=== PATIENT | female | born 1985 | race Caucasian/White ===

== ENCOUNTER 2017-07-03 17:13 | Inpatient (IN) | payer MEDICAID, OTHER ==
[~2017-07-03] VITALS: Ht 160 cm; Wt 75.8 kg
[2017-07-03 17:15] VITALS: BP 118/77; PULSE 122; RESP 20; TEMP 99.5; O2SAT 99
[2017-07-03] MEDS ORDERED: LEVO.2 PO (20:28)
[2017-07-03] MEDS ORDERED: birth control (20:28)
[2017-07-03] MEDS ORDERED: SODIUM CHLOR 0.9% 1000 ML INJ 1,000 ML IV SCH (20:50)
--- NOTE | 2017-07-03 20:57 | PD ---
HPI Chief Complaint: Abdominal Pain Time Seen by Provider: 20:42 Travel History International Travel<30 days: No Contact w/Intl Traveler<30days: No Traveled to known affect area: No History of Present Illness HPI 32-year-old female complains of right upper quadrant abdominal pain. Patient states that the pain started yesterday get worse today. Patient states the pain is cramping and sharp pain started right upper quadrant of the abdomen with radiation to right flank area. Patient denies any fever chills. Patient denies any dysuria or frequency. Patient states that the urine has been dark since yesterday. Patient denies any headache. Patient denies any chest pain or shortness of breath. Patient denies any vaginal discharge or bleeding. Patient has history hypothyroidism and on Synthroid. PFSH Past Medical History Thyroid Disease: Yes ?: Not Dilation and Curettage (D&C): Yes Past Surgical History Tonsillectomy: Yes Other Surgery: Yes (five on right foot) Social History Alcohol Use: Yes (socially) Tobacco Use: Yes Allergies-Medications (Allergen,Severity, Reaction): Coded Allergies: acetaminophen (Verified Allergy, Severe, Itching, 07/03/17) hydrocodone (Verified Allergy, Severe, Itching, 07/03/17) latex (Verified Allergy, Severe, 07/03/17) Uncoded Allergies: cillins (Allergy, Severe, Anaphylaxis, 07/03/17) Reported Meds & Prescriptions Reported Meds & Active Scripts Active Reported Synthroid (Levothyroxine Sodium) 200 Mcg Tab 250 Mcg PO DAILY [ control] Review of Systems General / Constitutional: No: Fever Eyes: No: Visual changes HENT: No: Headaches Cardiovascular: No: Chest Pain or Discomfort Respiratory: No: Shortness of Breath Gastrointestinal: Positive: Abdominal Pain Genitourinary: No: Dysuria Musculoskeletal: No: Pain Skin: No Rash Neurologic: No: Weakness Psychiatric: No: Depression Endocrine: No: Polydipsia Hematologic/Lymphatic: No: Easy Bruising Physical Exam Narrative GENERAL: Well-nourished, well-developed patient. SKIN: Focused skin assessment warm/dry. HEAD: Normocephalic. EYES: Bilateral scleral icterus. No injection or drainage. NECK: Supple, trachea midline. No JVD or lymphadenopathy. CARDIOVASCULAR: Regular rate and rhythm without murmurs, gallops, or rubs. RESPIRATORY: Breath sounds equal bilaterally. No accessory muscle use. GASTROINTESTINAL: Abdomen soft, nondistended. Patient has moderate tenderness on palpation right upper quadrant of the abdomen. No rebound tenderness. No mass. MUSCULOSKELETAL: No cyanosis, or edema. BACK: Nontender without obvious deformity. No CVA tenderness. Neurologic exam normal. Data Data Last Documented VS Vital Signs Date Time Temp Pulse Resp B/P (MAP) Pulse Ox O2 Delivery O2 Flow Rate FiO2 07/03/17 21:52 82 18 116/63 (80) 98 Room Air 07/03/17 17:15 99.5 Orders Orders Us Abdomen Gallbladder (07/03/17 ) Complete Blood Count With Diff (07/03/17 20:50) Comprehensive Metabolic Panel (07/03/17 20:50) Lipase (07/03/17 20:50) Prothrombin Time / Inr (Pt) (07/03/17 20:50) Act Partial Throm Time (Ptt) (07/03/17 20:50) Urinalysis - C+S If Indicated (07/03/17 20:50) Iv Access Insert/Monitor (07/03/17 20:50) Ecg Monitoring (07/03/17 20:50) Oximetry (07/03/17 20:50) Morphine Inj (Morphine Inj) (07/03/17 21:00) Ondansetron Inj (Zofran Inj) (07/03/17 21:00) Sodium Chlor 0.9% 1000 Ml Inj (Ns 1000 M (07/03/17 20:50) Sodium Chloride 0.9% Flush (Ns Flush) (07/03/17 21:00) Famotidine Inj (Pepcid Inj) (07/03/17 21:00) Ed Urine Pregnancytest Poc (07/03/17 20:50) Urine Culture (07/03/17 21:20) Mri Mrcp W & W/O Contrast (07/04/17 07:00) Hepatitis Profile (07/03/17 22:38) Labs Laboratory Tests Test 07/03/17 21:20 White Blood Count 11.5 TH/MM3 Red Blood Count 5.72 MIL/MM3 Hemoglobin 17.5 GM/DL Hematocrit 51.1 % Mean Corpuscular Volume 89.4 FL Mean Corpuscular Hemoglobin 30.7 PG Mean Corpuscular Hemoglobin Concent 34.3 % Red Cell Distribution Width 15.5 % Platelet Count 201 TH/MM3 Mean Platelet Volume 10.2 FL Neutrophils (%) (Auto) 41.8 % Lymphocytes (%) (Auto) 44.5 % Monocytes (%) (Auto) 8.9 % Eosinophils (%) (Auto) 3.4 % Basophils (%) (Auto) 1.4 % Neutrophils # (Auto) 4.8 TH/MM3 Lymphocytes # (Auto) 5.1 TH/MM3 Monocytes # (Auto) 1.0 TH/MM3 Eosinophils # (Auto) 0.4 TH/MM3 Basophils # (Auto) 0.2 TH/MM3 CBC Comment DIFF FINAL Differential Comment Prothrombin Time 12.3 SEC Prothromb Time International Ratio 1.1 RATIO Activated Partial Thromboplast Time 27.8 SEC Urine Color DARK-BROWN Urine Turbidity CLOUDY Urine pH 5.5 Urine Specific [place] 1.025 Urine Protein TRACE mg/dL Urine Glucose (UA) NEG mg/dL Urine Ketones NEG mg/dL Urine Occult Blood NEG Urine Nitrite NEG Urine Bilirubin LARGE Urine Urobilinogen 4.0 MG/DL Urine Leukocyte Esterase LARGE Urine RBC 4 /hpf Urine WBC 44 /hpf Urine Squamous Epithelial Cells 8 /hpf Urine Amorphous Sediment RARE Urine Mucus MOD /lpf Microscopic Urinalysis Comment CULTURE INDICATED Blood Urea Nitrogen 5 MG/DL Creatinine 0.96 MG/DL Random Glucose 72 MG/DL Total Protein 8.1 GM/DL Albumin 4.3 GM/DL Calcium Level 9.5 MG/DL Alkaline Phosphatase 231 U/L Aspartate Amino Transf (AST/SGOT) 1021 U/L Alanine Aminotransferase (ALT/SGPT) 1705 U/L Total Bilirubin 16.3 MG/DL Sodium Level 139 MEQ/L Potassium Level 3.6 MEQ/L Chloride Level 106 MEQ/L Carbon Dioxide Level 23.5 MEQ/L Anion Gap 10 MEQ/L Estimat Glomerular Filtration Rate 67 ML/MIN Lipase 440 U/L [facility] Medical Decision Making Medical Screen Exam Complete: Yes Emergency Medical Condition: Yes Interpretation(s) Last Impressions Gall Bladder Ultrasound 07/03/17 0000 Signed Impressions: Service Date/Time: Monday, July 03, 2017 20:44 - CONCLUSION: 4 mm borderline thickening of the wall the gallbladder with no evidence of stones or pericholecystic fluid and the bile ducts are normal. Ruben Carreon MD 21:50 PM. CBC WBC 11.5. Hemoglobin 17.5 and hematocrit 51.1. 44 lymphocytes. UA positive for bilirubin, leukocytes, WBC. 22 24 PM. Random glucose 72. Total bili 16.3. AST 1021. ALT 1705. Alkaline phosphatase 231. Lipase 440. Differential Diagnosis Differential diagnosis including acute cholecystitis, choledocholithiasis, hepatitis, pyelonephritis, nephrolithiasis. Narrative Course 32 year female with right upper quadrant abdominal pain, jaundice. Normal saline solution 1 25 cc an hour. Morphine 2 mg IV. Zofran 4 mg IV. Pepcid 20 mg IV. I spoke with title checker, Dr. Ragsdale. Advised medical admission and hepatitis profile MRCP. Diagnosis Primary Impression: Acute hepatitis Admitting Information Admitting Physician Requests: Admit Martínez Villagran MD Jul 03, 2017 20:57
[2017-07-03] MEDS ORDERED: MORPHINE SULFATE 4 MG/ML INJ IV PUSH ONE ×2 (21:00→22:45)
[2017-07-03] MEDS ORDERED: SODIUM CHLORIDE 0.9% FLUSH 10 ML FLUSH IV FLUSH PRN ×2 (21:00→22:45)
[2017-07-03] MEDS ORDERED: ONDANSETRON HCL 4 MG/2 ML VIAL IVP ONE (21:00)
[2017-07-03] MEDS ORDERED: FAMOTIDINE 20 MG/2 ML VIAL IV PUSH ONE (21:00)
--- NOTE | 2017-07-03 21:23 | RADRPT ---
EXAM DATE/TIME: 07/03/2017 20:44 [facility] COMPARISON: No previous studies available for comparison. INDICATIONS : Right upper quadrant pain. MEDICAL HISTORY : Right upper quadrant pain. Jaundice. SURGICAL HISTORY : None. ENCOUNTER: Initial ACUITY: 1 day PAIN SCORE: 8/10 LOCATION: Right upper quadrant MEASUREMENTS: LIVER: 13.4 cm length COMMON DUCT: 3 mm RIGHT KIDNEY: 11.2 x 4.4 x 4.1 cm FINDINGS: LIVER: Normal echotexture without focal lesion or ductal dilatation. COMMON DUCT: No intraluminal mass or stone visualized. GALLBLADDER: Contains no stones or para cholecystic fluid with borderline thickening of 4 mm and the wall PANCREAS: The visualized portions are within normal limits. RIGHT KIDNEY: No evidence of hydronephrosis, stone, or mass. CONCLUSION: 4 mm borderline thickening of the wall the gallbladder with no evidence of stones or pericholecystic fluid and the bile ducts are normal. Ruben Carreon MD on July 03, 2017 at 21:21 Board Certified Radiologist. This report was verified electronically.
[2017-07-03 21:36] LABS: AUTOMATED NEUTROPHIL # 4.8 TH/MM3 (1.8-7.7); BASOPHIL # 0.2 TH/MM3 (0-0.2); BASOPHIL % 1.4 % (0.0-2.0); EOSINOPHIL # 0.4 TH/MM3 (0-0.4); EOSINOPHIL % 3.4 % (0.0-4.0); HEMATOCRIT 51.1 % (35.0-46.0); HEMO FLAGS DIFF FINAL; LYMPH % 44.5 % (9.0-44.0); LYMPHOCYTE # 5.1 TH/MM3 (1.0-4.8); MEAN CELL VOLUME 89.4 FL (80.0-100.0); MEAN CORPUSCULAR HEMOGLOBIN 30.7 PG (27.0-34.0); MEAN CORPUSCULAR HGB CONC 34.3 % (32.0-36.0); MONO % 8.9 % (0.0-8.0); NEUT % 41.8 % (16.0-70.0); PLATELET COUNT 201 TH/MM3 (150-450); RED BLOOD COUNT 5.72 MIL/MM3 (4.00-5.30); RED CELL DISTRIBUTION WIDTH 15.5 % (11.6-17.2); WHITE BLOOD COUNT 11.5 TH/MM3 (4.0-11.0)
[2017-07-03 21:38] LABS: BLOOD, URINE NEG (NEG); COMMENT (UR) CULTURE INDICATED; CULTURE IF INDICATED CULTURE INDICATED; GLUCOSE,URINE NEG (NEG); KETONE, URINE NEG (NEG); MUCUS URINE MOD /lpf (OCC); NITRITE,URINE NEG (NEG); PH, URINE 5.5 (5.0-8.5); SQUAMOUS EPITHELIAL CELL URINE 8 /hpf (0-5)
[2017-07-03 21:39] LABS: URINE COLOR DARK-BROWN (YELLW/STRAW)
[2017-07-03 21:51] LABS: ANION GAP 10 MEQ/L (5-15); BICARBONATE 23.5 MEQ/L (21.0-32.0); BLOOD UREA NITROGEN 5 MG/DL (7-18); CHLORIDE 106 MEQ/L (98-107); GLOMERULAR FILTRATION RATE 67 ML/MIN (>89); POTASSIUM 3.6 MEQ/L (3.5-5.1); SODIUM (NA) 139 MEQ/L (136-145)
[2017-07-03 21:52] VITALS: BP 116/63; PULSE 82; RESP 18; O2SAT 98
[2017-07-03 22:06] LABS: APTT (PATIENT) 27.8 SEC (24.3-30.1); INTERNATIONAL NORMALIZED RATIO 1.1 RATIO; PROTHROMBIN TIME - PATIENT 12.3 SEC (9.8-11.6)
[2017-07-03 22:07] LABS: ALKALINE PHOSPHATASE 231 U/L (45-117); TOTAL BILIRUBIN ADULT 16.3 MG/DL (0.2-1.0)
[2017-07-03 22:10] LABS: ALT (GPT) 1705 U/L (10-53); AST (GOT) 1021 U/L (15-37)
[2017-07-03] MEDS ORDERED: NALOXONE HCL 0.4 MG/ML AMP IV PUSH PRN (22:45)
[2017-07-04] VITALS (10 sets, daily range): BP systolic 94–122; BP diastolic 50–71; PULSE 61–84; RESP 16–18; TEMP 97.9–98.6; O2SAT 94–100
[2017-07-04] MEDS: MORPHINE SULFATE 2 MG/ML INJ IV PUSH PRN ×2 (01:29→06:00)
[2017-07-04] MEDS ORDERED: PROMETHAZINE INJ 25 MG/ML VIAL IM ONE (01:45)
[2017-07-04 08:21] LABS: AUTOMATED NEUTROPHIL # 2.9 TH/MM3 (1.8-7.7); BASOPHIL # 0.1 TH/MM3 (0-0.2); BASOPHIL % 1.6 % (0.0-2.0); EOSINOPHIL # 0.5 TH/MM3 (0-0.4); HEMATOCRIT 41.1 % (35.0-46.0); HEMO FLAGS DIFF FINAL; LYMPH % 44.2 % (9.0-44.0); LYMPHOCYTE # 3.3 TH/MM3 (1.0-4.8); MEAN CELL VOLUME 89.7 FL (80.0-100.0); MEAN CORPUSCULAR HEMOGLOBIN 30.7 PG (27.0-34.0); MEAN CORPUSCULAR HGB CONC 34.3 % (32.0-36.0); MONO % 8.7 % (0.0-8.0); NEUT % 38.5 % (16.0-70.0); PLATELET COUNT 147 TH/MM3 (150-450); RED BLOOD COUNT 4.58 MIL/MM3 (4.00-5.30); RED CELL DISTRIBUTION WIDTH 15.4 % (11.6-17.2); WHITE BLOOD COUNT 7.5 TH/MM3 (4.0-11.0)
[2017-07-04 08:50] LABS: ALKALINE PHOSPHATASE 139 U/L (45-117); ANION GAP 10 MEQ/L (5-15); AST (GOT) 884 U/L (15-37); BICARBONATE 20.5 MEQ/L (21.0-32.0); BLOOD UREA NITROGEN 6 MG/DL (7-18); CHLORIDE 111 MEQ/L (98-107); GLOMERULAR FILTRATION RATE 91 ML/MIN (>89); POTASSIUM 3.6 MEQ/L (3.5-5.1); SODIUM (NA) 141 MEQ/L (136-145); TOTAL BILIRUBIN ADULT 12.5 MG/DL (0.2-1.0)
[2017-07-04 09:05] LABS: ALT (GPT) 1193 U/L (10-53)
[2017-07-04] MEDS: SODIUM CHLORIDE 0.9% FLUSH 10 ML FLUSH IV FLUSH SCH ×2 (09:22→20:11)
--- NOTE | 2017-07-04 09:54 | HHI.HP ---
[facility] No Primary Care Physician Admission Diagnosis acute hepatitis Diagnoses: (1) Acute hepatitis Diagnosis: Principal Chief Complaint: Dizzness, nausea and vomiting Travel History International Travel<30 Days: No Contact w/Intl Traveler <30 Da: No Traveled to Known Affected Are: No History of Present Illness Written by Ainsley Bhatti, acting as scribe for Dr. Jose on 07/04/17 at 09: 51. Mrs. Hilario is a 32-year-old female patient with a known medical history of hypothyroidism and tobacco abuse who presented to the ED with complaints of abdominal pain with associated nausea and vomiting. Patient states that 3 days ago she noticed intermittent dizziness and yellowing of her sclera with the next day complaints of nausea and vomiting with abdominal pain all night long. Denies any similar symptoms in the past. Denies eating anything unusual in her diet. Denies any recent consumption of seafood, states she is allergic. Denies any recent exposure to contaminated needles. Denies any new sexual partners, patient is . 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 Denies any exposure to hepatitis "if that is what you're asking". Denies any recent fever, chills, cough, shortness of breath, headache, diarrhea or hematochezia. Review of Systems Constitutional: DENIES: Fever, Chills, Change in appetite Respiratory: DENIES: Cough, Shortness of breath Cardiovascular: DENIES: Chest pain Gastrointestinal: COMPLAINS OF: Abdominal pain, Nausea, Vomiting Except as stated in HPI: all other systems reviewed are Neg Dizziness Jaundice Past Family Social History Past Medical History Hypothyroidism Past Surgical History D&C x 2 Tonsillectomy Foot surgeries x 5 Reconstructed sinus surgery Reported Medications Active Reported Synthroid (Levothyroxine Sodium) 200 Mcg Tab 250 Mcg PO DAILY [ control] Allergies: Coded Allergies: acetaminophen (Verified Allergy, Severe, Itching, 07/03/17) hydrocodone (Verified Allergy, Severe, Itching, 07/03/17) latex (Verified Allergy, Severe, 07/03/17) Uncoded Allergies: cillins (Allergy, Severe, Anaphylaxis, 07/03/17) Active Ordered Medications Current Medications Medications (Trade) Dose Ordered Sig/Charline Route Start Time Stop Time Status Last Admin (NS Flush) 2 ml UNSCH PRN IV FLUSH 07/03/17 22:45 (NS Flush) 2 ml BID IV FLUSH 07/04/17 09:00 07/04/17 09:22 (Narcan Inj) 0.4 mg UNSCH PRN IV PUSH 07/03/17 22:45 (Morphine Inj) 2 mg Q4H PRN IV PUSH 07/04/17 01:15 07/04/17 06:00 (Ativan) 1 mg ONCE ONCE PO 07/04/17 10:00 07/04/17 10:01 Family History Patient is adopted, unaware of parental medical history. Does state that her biological brother had his gallbladder out early this year as well as her biological aunt having gallbladder problems. Social History Does admit to smoking 6 cigarettes per day. Denies any alcohol use. Denies any illicit drug use. Physical Exam Vital Signs Vital Signs Date Time Temp Pulse Resp B/P (MAP) Pulse Ox O2 Delivery O2 Flow Rate FiO2 07/04/17 08:00 98.4 61 18 98/54 (69) 94 07/04/17 05:32 98.5 80 16 122/71 (88) 96 07/04/17 01:31 98.5 84 18 120/68 (85) 96 07/04/17 00:59 73 07/04/17 00:22 Room Air 07/03/17 21:52 82 18 116/63 (80) 98 Room Air 07/03/17 17:15 99.5 122 20 118/77 (91) 99 Room Air Physical Exam GENERAL: This is a well-nourished, well-developed female patient, lying in bed, with complaint of abdominal pain. SKIN: No rashes, ecchymoses or lesions. Warm and dry. HEENT: Atraumatic. Normocephalic. Pupils equal round and reactive. Extraocular motions intact. No scleral icterus. No injection or drainage. Nose without bleeding. Throat without erythema, tonsillar hypertrophy or exudate. Uvula midline. Airway patent. NECK: Trachea midline. No JVD. Supple. CARDIOVASCULAR: Regular rate and rhythm without murmurs, gallops, or rubs. RESPIRATORY: Clear to auscultation. Breath sounds equal bilaterally. No wheezes , rales, or rhonchi. GASTROINTESTINAL: Abdomen soft, non-tender, nondistended. No hepato-splenomegaly , or palpable masses. No guarding. MUSCULOSKELETAL: Extremities without clubbing, cyanosis, or edema. No joint tenderness, effusion, or edema noted. NEUROLOGICAL: Awake and alert. Cranial nerves II through XII intact. Motor and sensory grossly within normal limits. Five out of 5 muscle strength in all muscle groups. Normal speech. Laboratory Laboratory Tests Test 07/03/17 21:20 07/04/17 07:20 White Blood Count 11.5 7.5 Red Blood Count 5.72 4.58 Hemoglobin 17.5 14.1 Hematocrit 51.1 41.1 Mean Corpuscular Volume 89.4 89.7 Mean Corpuscular Hemoglobin 30.7 30.7 Mean Corpuscular Hemoglobin Concent 34.3 34.3 Red Cell Distribution Width 15.5 15.4 Platelet Count 201 147 Mean Platelet Volume 10.2 10.2 Neutrophils (%) (Auto) 41.8 38.5 Lymphocytes (%) (Auto) 44.5 44.2 Monocytes (%) (Auto) 8.9 8.7 Eosinophils (%) (Auto) 3.4 7.0 Basophils (%) (Auto) 1.4 1.6 Neutrophils # (Auto) 4.8 2.9 Lymphocytes # (Auto) 5.1 3.3 Monocytes # (Auto) 1.0 0.7 Eosinophils # (Auto) 0.4 0.5 Basophils # (Auto) 0.2 0.1 CBC Comment DIFF FINAL DIFF FINAL Differential Comment Prothrombin Time 12.3 Prothromb Time International Ratio 1.1 Activated Partial Thromboplast Time 27.8 Urine Color DARK-BROWN Urine Turbidity CLOUDY Urine pH 5.5 Urine Specific [place] 1.025 Urine Protein TRACE Urine Glucose (UA) NEG Urine Ketones NEG Urine Occult Blood NEG Urine Nitrite NEG Urine Bilirubin LARGE Urine Urobilinogen 4.0 Urine Leukocyte Esterase LARGE Urine RBC 4 Urine WBC 44 Urine Squamous Epithelial Cells 8 Urine Amorphous Sediment RARE Urine Mucus MOD Microscopic Urinalysis Comment CULTURE INDICATED Blood Urea Nitrogen 5 6 Creatinine 0.96 0.73 Random Glucose 72 57 Total Protein 8.1 5.1 Albumin 4.3 2.8 Calcium Level 9.5 8.0 Alkaline Phosphatase 231 139 Aspartate Amino Transf (AST/SGOT) 1021 884 Alanine Aminotransferase (ALT/SGPT) 1705 1193 Total Bilirubin 16.3 12.5 Sodium Level 139 141 Potassium Level 3.6 3.6 Chloride Level 106 111 Carbon Dioxide Level 23.5 20.5 Anion Gap 10 10 Estimat Glomerular Filtration Rate 67 91 Lipase 440 Acetaminophen Level LESS THAN 2.0 Date/Time Source Procedure Growth Status 07/03/17 21:20 Urine Random Urine Urine Culture Pending Received Result Diagram: 07/04/17 0720 07/04/17 07 Imaging Last Impressions Gall Bladder Ultrasound 07/03/17 0000 Signed Impressions: Service Date/Time: Monday, July 03, 2017 20:44 - CONCLUSION: 4 mm borderline thickening of the wall the gallbladder with no evidence of stones or pericholecystic fluid and the bile ducts are normal. MD Smooth Hurley VTE Risk Assessment Smooth VTE Risk Assessment: No/Low Risk (score <= 1) Caprini Risk Assessment Model Point Value = 1 Point Value = 2 Point Value = 3 Point Value = 5 Age 41-60 Minor surgery BMI > 25 kg/m2 Swollen legs Varicose veins or History of unexplained or recurrent spontaneous Oral contraceptives or hormone replacement Sepsis (< 1 month) Serious lung disease, including pneumonia (< 1 month) Abnormal pulmonary function Acute myocardial infarction Congestive heart failure (< 1 month) History of inflammatory bowel disease Medical patient at bed rest Age 61-74 Arthroscopic surgery Major open surgery (> 45 min) Laparoscopic surgery (> 45 min) Malignancy Confined to bed (> 72 hours) Immobilizing plaster cast Central venous access Age >= 75 History of VTE Family history of VTE Factor V Leiden Prothrombin 10605B Lupus anticoagulant Anticardiolipin antibodies Elevated serum homocysteine Heparin-induced thrombocytopenia Other congenital or acquired thrombophilia Stroke (< 1 month) Elective arthroplasty Hip, pelvis, or leg fracture Acute spinal cord injury (< 1 month) Prophylaxis Regimen Total Risk Factor Score Risk Level Prophylaxis Regimen 0-1 Low Early ambulation 2 Moderate Order ONE of the following: *Sequential Compression Device (SCD) *Heparin 5000 units SQ BID 3-4 Higher Order ONE of the following medications: *Heparin 5000 units SQ TID *Enoxaparin/Lovenox 40 mg SQ daily (WT < 150 kg, CrCl > 30 mL/min) *Enoxaparin/Lovenox 30 mg SQ daily (WT < 150 kg, CrCl > 10-29 mL/min) *Enoxaparin/Lovenox 30 mg SQ BID (WT < 150 kg, CrCl > 30 mL/min) AND/OR *Sequential Compression Device (SCD) 5 or more Highest Order ONE of the following medications: *Heparin 5000 units SQ TID (Preferred with Epidurals) *Enoxaparin/Lovenox 40 mg SQ daily (WT < 150 kg, CrCl > 30 mL/min) *Enoxaparin/Lovenox 30 mg SQ daily (WT < 150 kg, CrCl > 10-29 mL/min) *Enoxaparin/Lovenox 30 mg SQ BID (WT < 150 kg, CrCl > 30 mL/min) AND *Sequential Compression Device (SCD) Assessment and Plan Assessment and Plan Mrs. Hilario is a 32-year-old female patient with a known medical history of hypothyroidism and tobacco abuse who presented to the ED with complaints of abdominal pain with associated nausea and vomiting. Patient states that 3 days ago she noticed intermittent dizziness and yellowing of her sclera with the next day complaints of nausea and vomiting with abdominal pain all night long. Acute hepatitis suspect secondary to viral vs obstructive process Transaminase secondary to above. - Gall bladder ultrasound reviewed showing 4 mm borderline thickening of the wall of the gallbladder with no evidence of stones or pericholecystic fluid and the bile ducts are normal. - MRCP ordered for today, follow. Given one dose of Ativan for anxiety related to procedure. - Initial mild leukocytosis 11.5 on presentation, now 7.5. Monitor for infection. Monitor for fever. Afebrile overnight. - Total bilirubin 16.3 on presentation --> 12.5. AST 1021 --> 884 and ALT 1705 --> 1193 and alkaline phosphatase 231-->139. Lipase mildly elevated. Will repeat labs in am. Follow. - Hepatitis profile pending. Follow. - UA showing large amount of bilirubin and urobilinogen, and leukocyte esterase. Awaiting urine culture growth, pending. Follow. - Control pain, Morphine IV available PRN as needed. Control nausea, Zofran available PRN. - Keep NPO for now. Supportive care. - Consult placed to GI, appreciate further input and recommendations. - Patient reports no improvement with Morphine but does not objectively appear to be in severe pain. Switch to Oxycodone which she reports usually work for her. Plan to wean off quickly based on the workup DVT Prophylaxis: SCDs. This note was transcribed by scribe [Ainsley Bhatti]. I, Dr. Mary Kate Jose personally performed the history, physical exam, and medical decision making; and confirmed the accuracy of the information in the transcribed note. Authenticated by Dr. Mary Kate Jose on 07/04/17 at 1000. Physician Certification 2 Midnight Certification Type: Admission for Inpatient Services Order for Inpatient Services The services are ordered in accordance with Medicare regulations or non- Medicare payer requirements, as applicable. In the case of services not specified as inpatient-only, they are appropriately provided as inpatient services in accordance with the 2-midnight benchmark. Estimated LOS (days): 2 2 days is the estimated time the patient will need to remain in the hospital, assuming treatment plan goals are met and no additional complications. Post-Hospital Plan: Home Ainsley Bhatti Jul 04, 2017 09:54 Mary Kate Jose MD Jul 04, 2017 11:33
[2017-07-04] MEDS ORDERED: LORazepam 1 MG TAB PO ONE (10:00)
--- NOTE | 2017-07-04 10:48 | RADRPT ---
EXAM DATE/TIME: 07/04/2017 10:09 [facility] COMPARISON: US ABDOMEN - GALLBLADDER, July 03, 2017, 20:44. INDICATIONS : Abdominal pain. Juandice. MEDICAL HISTORY : Gastroesophageal reflux disease. Thyroid disease. SURGICAL HISTORY : Tonsillectomy. Right foot surgery. ENCOUNTER: Subsequent ACUITY: 2 day PAIN SCORE: 4/10 LOCATION: Right upper quadrant abdomen. TECHNIQUE: Multiplanar, multisequence magnetic resonance imaging of the abdomen was performed. High-resolution 3D dataset was utilized to reconstruct maximum-intensity projection (MIP) images. FINDINGS: INTRAHEPATIC BILE DUCTS: Within normal limits. No significant anatomical variant is present. EXTRAHEPATIC BILE DUCTS: The common bile duct measures 4 mm No stone or filling defect is identified. GALLBLADDER: No stones, wall thickening, or pericholecystic fluid. LIVER: Normal size and signal intensity. No concerning liver lesion is identified on this non-contrast exam. PANCREAS: The main pancreatic duct is normal in size. There is no significant anatomical variant. Signal inte nsity is within normal limits. No mass is visualized on this non-contrast exam. OTHER: The remaining visualized structures demonstrate no acute abnormality on this non-contrast exam. CONCLUSION: Unremarkable MRCP. Jarad Beltran MD on July 04, 2017 at 10:44 Board Certified Radiologist. This report was verified electronically.
--- NOTE | 2017-07-04 13:25 | PD.CONS ---
HPI History of Present Illness This is a 32 year old female who presented with RUQ pain, n/v, jaundice. 4 days ago she noticed her eyes turnign yellow, felt dizzy. 3 d ago onset nausea and vomiting, subjective fevers. Yesterday onset RUQ pain that radiated to right shoulder. Denies recent travel, new meds, IVDU, new sex partners, exposure to unsterile needles. She does have recent tattoo but says sterile disposable needle unwrapped in front of her. No diarrhea, blood in emesis, blood in stool. Never had EGD or colonoscopy. No prior hx liver trouble. She says she has family hx of cholecystitis with jaundice. (Smita Gonzalez) PFSH Past Medical History Hypothyroidism hypothyroid, thyroid nodules Past Surgical History D&C x 2 Tonsillectomy Foot surgeries x 5 Reconstructed sinus surgery (Smita Gonzalez) Coded Allergies: acetaminophen (Verified Allergy, Severe, Itching, 07/03/17) hydrocodone (Verified Allergy, Severe, Itching, 07/03/17) latex (Verified Allergy, Severe, 07/03/17) Uncoded Allergies: cillins (Allergy, Severe, Anaphylaxis, 07/03/17) Family History Patient is adopted, unaware of parental medical history. Does state that her biological brother had his gallbladder out early this year as well as her biological aunt having gallbladder problems. Social History Does admit to smoking 6 cigarettes per day. Denies any alcohol use. Denies any illicit drug use. (Smita Gonzalez) Review of Systems Constitutional: COMPLAINS OF: Fever, Dizziness Eyes: DENIES: Blurred vision Ears, nose, mouth, throat: DENIES: Hearing loss Respiratory: DENIES: Cough Cardiovascular: DENIES: Chest pain Gastrointestinal: COMPLAINS OF: Abdominal pain, Nausea, Vomiting, DENIES: Black stools, Bloody stools, Constipation, Diarrhea, Hematemesis Genitourinary: DENIES: Hematuria Musculoskeletal: DENIES: Joint Swelling Integumentary: COMPLAINS OF: Jaundice Neurologic: DENIES: Abnormal gait Psychiatric: DENIES: Confusion (Smita Gonzalez) GI Exam Vitals I&O Vital Signs Date Time Temp Pulse Resp B/P (MAP) Pulse Ox O2 Delivery O2 Flow Rate FiO2 07/04/17 12:00 98.1 68 18 94/53 (67) 100 07/04/17 09:29 61 07/04/17 09:29 Room Air 07/04/17 08:00 98.4 61 18 98/54 (69) 94 07/04/17 05:32 98.5 80 16 122/71 (88) 96 07/04/17 01:31 98.5 84 18 120/68 (85) 96 07/04/17 00:59 73 07/04/17 00:22 Room Air 07/03/17 21:52 82 18 116/63 (80) 98 Room Air 07/03/17 17:15 99.5 122 20 118/77 (91) 99 Room Air I/O 07/03/17 07/03/17 07/03/17 07/04/17 07/04/17 07/04/17 07:00 15:00 23:00 07:00 15:00 23:00 Intake Total 1000 ml Balance 1000 ml Intake IV Total 1000 ml Imaging Last Impressions Cholangiopancreatography MRI 07/04/17 0700 Signed Impressions: Service Date/Time: Tuesday, July 04, 2017 10:09 - CONCLUSION: Unremarkable MRCP. Jarad Beltran MD Gall Bladder Ultrasound 07/03/17 0000 Signed Impressions: Service Date/Time: Monday, July 03, 2017 20:44 - CONCLUSION: 4 mm borderline thickening of the wall the gallbladder with no evidence of stones or pericholecystic fluid and the bile ducts are normal. Ruben Carreon MD Laboratory Test 07/03/17 21:20 07/04/17 07:20 White Blood Count 11.5 TH/MM3 7.5 TH/MM3 Red Blood Count 5.72 MIL/MM3 4.58 MIL/MM3 Hemoglobin 17.5 GM/DL 14.1 GM/DL Hematocrit 51.1 % 41.1 % Mean Corpuscular Volume 89.4 FL 89.7 FL Mean Corpuscular Hemoglobin 30.7 PG 30.7 PG Mean Corpuscular Hemoglobin Concent 34.3 % 34.3 % Red Cell Distribution Width 15.5 % 15.4 % Platelet Count 201 TH/MM3 147 TH/MM3 Mean Platelet Volume 10.2 FL 10.2 FL Neutrophils (%) (Auto) 41.8 % 38.5 % Lymphocytes (%) (Auto) 44.5 % 44.2 % Monocytes (%) (Auto) 8.9 % 8.7 % Eosinophils (%) (Auto) 3.4 % 7.0 % Basophils (%) (Auto) 1.4 % 1.6 % Neutrophils # (Auto) 4.8 TH/MM3 2.9 TH/MM3 Lymphocytes # (Auto) 5.1 TH/MM3 3.3 TH/MM3 Monocytes # (Auto) 1.0 TH/MM3 0.7 TH/MM3 Eosinophils # (Auto) 0.4 TH/MM3 0.5 TH/MM3 Basophils # (Auto) 0.2 TH/MM3 0.1 TH/MM3 CBC Comment DIFF FINAL DIFF FINAL Differential Comment Prothrombin Time 12.3 SEC Prothromb Time International Ratio 1.1 RATIO Activated Partial Thromboplast Time 27.8 SEC Urine Color DARK-BROWN Urine Turbidity CLOUDY Urine pH 5.5 Urine Specific [place] 1.025 Urine Protein TRACE mg/dL Urine Glucose (UA) NEG mg/dL Urine Ketones NEG mg/dL Urine Occult Blood NEG Urine Nitrite NEG Urine Bilirubin LARGE Urine Urobilinogen 4.0 MG/DL Urine Leukocyte Esterase LARGE Urine RBC 4 /hpf Urine WBC 44 /hpf Urine Squamous Epithelial Cells 8 /hpf Urine Amorphous Sediment RARE Urine Mucus MOD /lpf Microscopic Urinalysis Comment CULTURE INDICATED Blood Urea Nitrogen 5 MG/DL 6 MG/DL Creatinine 0.96 MG/DL 0.73 MG/DL Random Glucose 72 MG/DL 57 MG/DL Total Protein 8.1 GM/DL 5.1 GM/DL Albumin 4.3 GM/DL 2.8 GM/DL Calcium Level 9.5 MG/DL 8.0 MG/DL Alkaline Phosphatase 231 U/L 139 U/L Aspartate Amino Transf (AST/SGOT) 1021 U/L 884 U/L Alanine Aminotransferase (ALT/SGPT) 1705 U/L 1193 U/L Total Bilirubin 16.3 MG/DL 12.5 MG/DL Sodium Level 139 MEQ/L 141 MEQ/L Potassium Level 3.6 MEQ/L 3.6 MEQ/L Chloride Level 106 MEQ/L 111 MEQ/L Carbon Dioxide Level 23.5 MEQ/L 20.5 MEQ/L Anion Gap 10 MEQ/L 10 MEQ/L Estimat Glomerular Filtration Rate 67 ML/MIN 91 ML/MIN Lipase 440 U/L Acetaminophen Level LESS THAN 2.0 MCG/ML Date/Time Source Procedure Growth Status 07/03/17 21:20 Urine Random Urine Urine Culture Pending Received Physical Examination HEENT: PERRL; normocephalic; atraumatic; +icterus CHEST: CTA CARDIAC: RRR ABDOMEN: Soft, nondistended, RUQ TTP; no hepatosplenomegaly; bowel sounds are present in all four quadrants. EXTREMITIES: No clubbing, cyanosis, or edema. SKIN: Normal; no rash; +jaundice. MEDICAL DEVICE SALES: No focal deficits; alert and oriented times three. (Smita Gonzalez) Assessment and Plan Plan ASSESSMENT - elevated LFTs, jaundice, RUQ pain - US shows GB wall thickening, MRCP neg. could have passed stone. poss cholecystitis. will consult GS PLAN - liver w/u to r/o other cause elevated LFTs - await hep panel - GS consult - NPO until GS sees pt - monitor labs - further recs to follow This pt seen by myself and Dr Ragsdale and this note is written on his behalf (Smita Gonzalez) Physician Comments Date of service was yesterday Patient seen and examined Agree with above Continue with current supportive care Monitor labs (Jay Ragsdale MD) Smita Gonzalez Jul 04, 2017 13:25 Jay Ragsdale MD Jul 05, 2017 17:50
[2017-07-04] MEDS: D5-1/2 NS + KCL 10 MEQ INJ 1,000 ML IV SCH (16:24)
[2017-07-04] MEDS: ONDANSETRON HCL 4 MG/2 ML VIAL IV PUSH PRN (18:47)
[2017-07-04] MEDS ORDERED: MORPHINE SULFATE 2 MG/ML INJ IV PUSH ONE (23:15)
[2017-07-05] VITALS (7 sets, daily range): BP systolic 96–118; BP diastolic 56–74; PULSE 53–91; RESP 16–20; TEMP 97.4–98.9; O2SAT 95–100
[2017-07-05] MEDS: ONDANSETRON HCL 4 MG/2 ML VIAL IV PUSH PRN ×3 (01:41→12:50)
[2017-07-05] MEDS: D5-1/2 NS + KCL 10 MEQ INJ 1,000 ML IV SCH ×3 (05:43→21:38)
[2017-07-05 08:13] LABS: ANION GAP 5 MEQ/L (5-15); BICARBONATE 25.7 MEQ/L (21.0-32.0); BLOOD UREA NITROGEN 5 MG/DL (7-18); CHLORIDE 109 MEQ/L (98-107); GLOMERULAR FILTRATION RATE 60 ML/MIN (>89); POTASSIUM 3.8 MEQ/L (3.5-5.1); SODIUM (NA) 140 MEQ/L (136-145)
[2017-07-05 08:24] LABS: AST (GOT) 1204 U/L (15-37)
[2017-07-05] MEDS: SODIUM CHLORIDE 0.9% FLUSH 10 ML FLUSH IV FLUSH SCH ×2 (08:26→20:28)
[2017-07-05 08:31] LABS: ALKALINE PHOSPHATASE 180 U/L (45-117); ALT (GPT) 1511 U/L (10-53); FERRITIN 3865 NG/ML (8-252); TOTAL BILIRUBIN ADULT 18.6 MG/DL (0.2-1.0); TRANSFERRIN IRON PROFILE 246 MG/DL (200-360)
--- NOTE | 2017-07-05 10:05 | HHI.GIFU ---
Subjective Remarks Resting in bed. Reports that her right upper quadrant pain is worsening. She has associated nausea. She denies any fevers or chills. She denies any generalized malaise or diarrhea. She does report that she was being seen as an outpatient for thyroid nodules and reports that there was some concern that they could be malignant. She reports that she has lost 150 pounds since September by cutting out junk food and soda. She denies any etoh use, drug use, Tylenol use, herbal supplements. She states the only medicine she takes is control and she has been on this since age 12. She denies any sick contacts, recent travel. (Marine Chan) Objective Vitals I&O Vital Signs Date Time Temp Pulse Resp B/P (MAP) Pulse Ox O2 Delivery O2 Flow Rate FiO2 07/05/17 04:45 98.0 53 16 96/56 (69) 98 07/04/17 23:35 97.9 64 16 102/56 (71) 100 07/04/17 20:00 Room Air 07/04/17 19:54 65 07/04/17 19:39 98.6 64 16 106/59 (75) 98 07/04/17 16:00 98.6 64 18 101/50 (67) 99 07/04/17 12:00 98.1 68 18 94/53 (67) 100 I/O 07/04/17 07/04/17 07/04/17 07/05/17 07/05/17 07/05/17 07:00 15:00 23:00 07:00 15:00 23:00 Intake Total 1000 ml 360 ml 1345 ml Balance 1000 ml 360 ml 1345 ml Intake Oral 360 ml 360 ml IV Total 1000 ml 985 ml # Voids 3 4 # Bowel Movements 0 0 Laboratory Laboratory Tests Test 07/05/17 06:55 Blood Urea Nitrogen 5 Creatinine 1.05 Random Glucose 75 Total Protein 5.8 Albumin 3.0 Calcium Level 8.1 Alkaline Phosphatase 180 Aspartate Amino Transf (AST/SGOT) 1204 Alanine Aminotransferase (ALT/SGPT) 1511 Total Bilirubin 18.6 Sodium Level 140 Potassium Level 3.8 Chloride Level 109 Carbon Dioxide Level 25.7 Anion Gap 5 Estimat Glomerular Filtration Rate 60 Iron Level 310 Total Iron Binding Capacity 344 Percent Iron Saturation 90.0 Ferritin 3865 Lipase 306 Tumor Marker Alpha Fetoprotein 21.1 Date/Time Source Procedure Growth Status 07/03/17 21:20 Urine Random Urine Urine Culture - Final 10-50,000 CFU/ML MIXED NKECHI... Complete Imaging Last Impressions Cholangiopancreatography MRI 07/04/17 0700 Signed Impressions: Service Date/Time: Tuesday, July 04, 2017 10:09 - CONCLUSION: Unremarkable MRCP. Jarad Beltran MD Gall Bladder Ultrasound 07/03/17 0000 Signed Impressions: Service Date/Time: Monday, July 03, 2017 20:44 - CONCLUSION: 4 mm borderline thickening of the wall the gallbladder with no evidence of stones or pericholecystic fluid and the bile ducts are normal. Ruben Carreon MD Physical Exam HEENT: Normocephalic; atraumatic; jaundice. CHEST: CTA CARDIAC: RRR. ABDOMEN: Soft, nondistended, nontender; no hepatosplenomegaly; bowel sounds are present in all four quadrants. EXTREMITIES: No clubbing, cyanosis, or edema. SKIN: Normal; no rash; + jaundice. DIXONAC OPERATOR: No focal deficits; alert and oriented times three. (Marine Chan [facility]) Assessment and Plan Plan ASSESSMENT - Acute hepatitis, unclear etiology. Pt c/o RUQ pain and n/v. Denies any new medications, etoh use, herbal supplements, Tylenol use. States the only med she takes is control and that she has been on this since age 12. She does report that she was being seen as an outpatient for thyroid nodules and reports that there was some concern that they could be malignant. She reports that she has lost 150 pounds since September by cutting out junk food and soda. She denies any sick contacts, recent travel. [place] GB (07/03/17)---> 4 mm borderline thickening of the wall of the gallbladder with no evidence of stones or pericholecystic fluid in the bile ducts are normal. MRCP without contrast (07/04/17)---> Unremarkable MRCP. Patient with worsening LFTs today. Hepatitis profile negative. AFP 21.1, iron saturation 90.0, ferritin 3865, alpha 1 antitrypsin pending, ceruloplasmin pending, BRITTANY pending, AMA pending , ASMA pending Total bilirubin 18.6, AST 1204, ALT 1511, alkaline phosphatase 180. Will check serology for CMV, EBV, HSV. Recheck coag. Plan for ERCP with possible stent placement today. GS evaluation pending. At this point, the etiology for her hepatitis is unclear. - Elevated AFP, undetermined significance. AFP 21.1. - Elevated ferritin, iron saturation. iron saturation 90.0, ferritin 3865. Check hfe gene - RUQ pain. Some wall thickening on US with no pericholecystic fluid. Unclear if this is related to hepatitis or there is gb path going on as well. GS eval pending. The patient insists that her pain is related to her gb- RUQ pain radiating to her shoulder. Her lipase was mildly elevated, but has improved today. - Elevated lipase, improved. Now normalized. - Abn. Wt. Loss. States she lost 150 lbs (320--->170 lb) since September from cutting out junk food and soda. - Hypothyroidism. States she was found to have thyroid nodules and told that they could be malignant as outpatient, but has not been able to get in for biopsy/further workup. PLAN: - Plan for ercp with possible sphincterotomy, possible stent placement - Obtain consents - NPO - Stat PT/INR - Hfe Gene - EBV, IgG, IgM - HSV IgG, IgM - CMV DNA - Await BRITTANY, ASMA, AMA, Ceruloplasmin, Alpha 1 Antitrypsin - GS evaluation - Monitor CBC, CMP, PT/INR - ? May need liver biopsy if no improvement - Pt seen and examined by Dr. Ragsdale and myself and this note is written on his behalf (Marine Chan) Physician Comments Patient seen and examined Agree with above Continue with current supportive care Monitor labs Plan for an ERCP so as to rule out an obstructive process (Jay Ragsdale MD) Marine Chan Jul 05, 2017 10:05 Jay Ragsdale MD Jul 05, 2017 13:18
--- NOTE | 2017-07-05 10:19 | HHI.PR ---
Subjective Remarks Written by Ainsley Bhatti, acting as scribe for Dr. Jose on 07/05/17 at 10: 19. Follow up transaminase and abdominal pain. Patient seen and examined in room. Denies any new acute complaints overnight, does complain of continued abdominal pain unrelieved with current pain regimen. Patient denies any continued nausea or vomiting. Denies any recent fever, chills, chest pain, cough, shortness of breath, diarrhea or dysuria. Objective Vitals Vital Signs Date Time Temp Pulse Resp B/P (MAP) Pulse Ox O2 Delivery O2 Flow Rate FiO2 07/05/17 08:00 98.4 70 20 107/67 (80) 100 07/05/17 04:45 98.0 53 16 96/56 (69) 98 07/04/17 23:35 97.9 64 16 102/56 (71) 100 07/04/17 20:00 Room Air 07/04/17 19:54 65 07/04/17 19:39 98.6 64 16 106/59 (75) 98 07/04/17 16:00 98.6 64 18 101/50 (67) 99 07/04/17 12:00 98.1 68 18 94/53 (67) 100 I/O 07/04/17 07/04/17 07/04/17 07/05/17 07/05/17 07/05/17 07:00 15:00 23:00 07:00 15:00 23:00 Intake Total 1000 ml 360 ml 1345 ml Balance 1000 ml 360 ml 1345 ml Intake Oral 360 ml 360 ml IV Total 1000 ml 985 ml # Voids 3 4 # Bowel Movements 0 0 Result Diagram: 07/04/17 0720 07/05/17 0655 Imaging Last Impressions Cholangiopancreatography MRI 07/04/17 0700 Signed Impressions: Service Date/Time: Tuesday, July 04, 2017 10:09 - CONCLUSION: Unremarkable MRCP. Jarad Beltran MD Gall Bladder Ultrasound 07/03/17 0000 Signed Impressions: Service Date/Time: Monday, July 03, 2017 20:44 - CONCLUSION: 4 mm borderline thickening of the wall the gallbladder with no evidence of stones or pericholecystic fluid and the bile ducts are normal. Ruben Carreon MD Objective Remarks GENERAL: This is a well-nourished, well-developed female patient, lying in bed, with complaint of abdominal pain. SKIN: No rashes, ecchymoses or lesions. Warm and dry. HEENT: Atraumatic. Normocephalic. Pupils equal round and reactive. Extraocular motions intact. No scleral icterus. No injection or drainage. Nose without bleeding. Throat without erythema, tonsillar hypertrophy or exudate. Uvula midline. Airway patent. NECK: Trachea midline. No JVD. Supple. CARDIOVASCULAR: Regular rate and rhythm without murmurs, gallops, or rubs. RESPIRATORY: Clear to auscultation. Breath sounds equal bilaterally. No wheezes , rales, or rhonchi. GASTROINTESTINAL: Abdomen soft, non-tender, nondistended. No hepato-splenomegaly , or palpable masses. No guarding. MUSCULOSKELETAL: Extremities without clubbing, cyanosis, or edema. No joint tenderness, effusion, or edema noted. NEUROLOGICAL: Awake and alert. Cranial nerves II through XII intact. Motor and sensory grossly within normal limits. Five out of 5 muscle strength in all muscle groups. Normal speech. A/P Problem List: (1) Acute hepatitis ICD Code: B17.9 - Acute viral hepatitis, unspecified Status: Acute Assessment and Plan Mrs. Hilario is a 32-year-old female patient with a known medical history of hypothyroidism and tobacco abuse who presented to the ED with complaints of abdominal pain with associated nausea and vomiting. Patient states that 3 days ago she noticed intermittent dizziness and yellowing of her sclera with the next day complaints of nausea and vomiting with abdominal pain all night long. Acute hepatitis suspect secondary to viral vs obstructive process Choledocholithiasis Transaminase secondary to above. - Gall bladder ultrasound reviewed showing 4 mm borderline thickening of the wall of the gallbladder with no evidence of stones or pericholecystic fluid and the bile ducts are normal. MRCP essentially unremarkable. ERCP done today showing choledocholithiasis and acute hepatitis. - Leukocytosis 11.5 on presentation, now 7.5. Monitor for infection. Monitor for fever. Afebrile overnight. - Worsening transaminase. Total bilirubin 16.3 on presentation --> 12.5 --> 18.6. AST 1021 --> 884 --> 1204 and ALT 1705 --> 1193 --> 1511 and alkaline phosphatase 231-- >139 --> 180. Lipase mildly elevated. - Hepatitis profile negative. - Urine culture showing probable contaminants. - Control pain, Morphine IV available PRN as needed. Control nausea, Zofran available PRN. - Clear liquid, assess toleration. - GI following, appreciate input. Consulted general surgery, appreciate input. - Patient reports continued abdominal pain. Will continue Oxycodone and add Morphine IV PRN for breakthrough pain. Plan to wean off quickly based on the workup DVT Prophylaxis: SCDs. This note was transcribed by scribe [Ainsley Bhatti]. I, Dr. Mary Kate Jose personally performed the history, physical exam, and medical decision making; and confirmed the accuracy of the information in the transcribed note. Authenticated by Dr. Mary Kate Jose on 07/05/17 at 1020. Ainsley Bhatti Jul 05, 2017 10:19 Mary Kate Jose MD Jul 05, 2017 15:34
--- NOTE | 2017-07-05 11:13 | PD.CAR.PN ---
CVT Progress Note Subjective/Hospital Course: Referral received Patient with pattern of massive liver failure not related to gallbladder but an intrinsic liver process Full consult to follow Jovanny J Objective: Vital Signs Date Time Temp Pulse Resp B/P (MAP) Pulse Ox O2 Delivery O2 Flow Rate FiO2 07/05/17 08:00 98.4 70 20 107/67 (80) 100 07/05/17 04:45 98.0 53 16 96/56 (69) 98 07/04/17 23:35 97.9 64 16 102/56 (71) 100 07/04/17 20:00 Room Air 07/04/17 19:54 65 07/04/17 19:39 98.6 64 16 106/59 (75) 98 07/04/17 16:00 98.6 64 18 101/50 (67) 99 07/04/17 12:00 98.1 68 18 94/53 (67) 100 Labs: Laboratory Tests Test 07/05/17 06:55 Blood Urea Nitrogen 5 MG/DL (7-18) Creatinine 1.05 MG/DL (0.50-1.00) Random Glucose 75 MG/DL (74-106) Total Protein 5.8 GM/DL (6.4-8.2) Albumin 3.0 GM/DL (3.4-5.0) Calcium Level 8.1 MG/DL (8.5-10.1) Alkaline Phosphatase 180 U/L (45-117) Aspartate Amino Transf (AST/SGOT) 1204 U/L (15-37) Alanine Aminotransferase (ALT/SGPT) 1511 U/L (10-53) Total Bilirubin 18.6 MG/DL (0.2-1.0) Sodium Level 140 MEQ/L (136-145) Potassium Level 3.8 MEQ/L (3.5-5.1) Chloride Level 109 MEQ/L (98-107) Carbon Dioxide Level 25.7 MEQ/L (21.0-32.0) Anion Gap 5 MEQ/L (5-15) Estimat Glomerular Filtration Rate 60 ML/MIN (>89) Iron Level 310 MCG/DL (50-170) Total Iron Binding Capacity 344 MCG/DL (250-450) Percent Iron Saturation 90.0 % (20-50) Ferritin 3865 NG/ML (8-252) Lipase 306 U/L (73-393) Tumor Marker Alpha Fetoprotein 21.1 NG/ML (0.5-8.0) Anti-Nuclear Antibody Screen NEG (NEG) Result Diagram: 07/04/17 0720 07/05/17 0655 Eliseo Mccoy MD Jul 05, 2017 11:13
[2017-07-05] MEDS ORDERED: FAMOTIDINE 20 MG/2 ML VIAL ONE (11:19)
[2017-07-05] MEDS ORDERED: APREPITANT 40 MG CAP ONE (11:19)
[2017-07-05] MEDS ORDERED: LACTATED RINGER'S 1000 ML INJ 1,000 ML ONE (11:29)
[2017-07-05] MEDS ORDERED: SUCCINYLCHOLINE CHLORIDE 100 MG/5 ML SYRINGE IV PUSH ONE (12:00)
[2017-07-05] MEDS ORDERED: MIDAZOLAM HCL 2 MG/2 ML VIAL IV ONE (12:00)
[2017-07-05] MEDS ORDERED: LIDOCAINE HCL 1% PF 5 ML AMPULE OTHER ONE (12:00)
[2017-07-05] MEDS ORDERED: ONDANSETRON HCL 4 MG/2 ML VIAL IV PUSH ONE (12:00)
[2017-07-05] MEDS ORDERED: ROCURONIUM INJ 50 MG/5 ML SYRINGE IV PUSH ONE (12:00)
[2017-07-05] MEDS ORDERED: DEXAMETHASONE SOD PHOS 4 MG/ML VIAL IV ONE (12:00)
[2017-07-05] MEDS ORDERED: PROPOFOL 200 MG/20 ML AMP IV ONE (12:00)
[2017-07-05] MEDS ORDERED: IOHEXOL 350 MG/ML 50 ML BTL (for RAD DIAG) OTHER ONE (12:11)
[2017-07-05] MEDS ORDERED: GLUCAGON 1 MG/ML VIAL IV PUSH ONE (12:13)
[2017-07-05] MEDS ORDERED: POVIDONE IODINE 5% (ANTISEPSIS KIT) 4 APPLICATIONS EACH NARE PRN (12:15)
[2017-07-05] MEDS ORDERED: METOPROLOL TARTRATE 25 MG TAB PO PRN (12:15)
[2017-07-05] MEDS ORDERED: CHLORHEXIDINE GLUCONATE 2 % 1 PACK (2 CLOTHS) TOPICAL PRN (12:15)
[2017-07-05] MEDS ORDERED: LACTATED RINGER'S 1000 ML IV PRN (12:15)
[2017-07-05] MEDS ORDERED: INSULIN HUMAN REGULAR 1,000 UNITS/10 ML VIAL SQ PRN (12:15)
[2017-07-05] MEDS ORDERED: SODIUM CHLORID 0.9% 500 ML IV PRN (12:15)
[2017-07-05] MEDS ORDERED: DO NOT ADM ANY ANTICOAGULANT DRUGS PRN (12:39)
[2017-07-05] MEDS ORDERED: *PROMETHAZINE 25 MG/ML VIAL PERIprocedural use ONLY ONE (13:10)
--- NOTE | 2017-07-05 13:16 | PD.PROCEDR ---
GI Procedure REFERRING PHYSICIAN Ericka PROCEDURE PERFORMED ERCP with sphincterotomy and balloon extraction INDICATION FOR PROCEDURE Worsening jaundice, worsening LFTs, right upper quadrant abdominal pain PROCEDURE: The procedure, risks and benefits were discussed with Ms. Hilario and informed consent was obtained. Anesthesia sedated her with Diprivan patient was intubated. She was placed in the left lateral decubitus position. ERCP: Patient was placed in a prone position. The Pentax videoscope was introduced through the oropharynx and advanced to the second portion of the duodenum where the ampula was identified. FINDINGS: The ampulla appeared to be unremarkable there were able to cannulate the common bile duct this appeared to be of normal caliber but they were suspect filling defects in the distal and the gallbladder filled nicely the intrahepatics were unremarkable a sphincterotomy was performed and balloon extraction using an 8 mm balloon was performed and small debris was noted to come out but no distinct stone was seen and the procedure was then terminated ESTIMATED BLOOD LOSS: None SPECIMENS REMOVED: None COMPLICATIONS: None IMPRESSION: Choledocholithiasis Acute hepatitis PLAN: Continue with current supportive care Monitor labs Further workup ordered for acute hepatitis Jay Ragsdale MD Jul 05, 2017 13:16
[2017-07-05 14:40] LABS: INTERNATIONAL NORMALIZED RATIO 1.2 RATIO; PROTHROMBIN TIME - PATIENT 13.6 SEC (9.8-11.6)
--- NOTE | 2017-07-05 15:05 | RADRPT ---
EXAM DATE/TIME: 07/05/2017 12:26 [facility] COMPARISON: No previous studies available for comparison. INDICATIONS : Obstruction FLUORO TIME: .25 minutes IMAGE COUNT: 2 CONTRAST: Instilled by Ordering Physician MEDICAL HISTORY : Jaundice SURGICAL HISTORY : None. ENCOUNTER: Initial ACUITY: 1 day PAIN SCORE: Non-responsive. LOCATION: Abdomen FINDINGS: An ERCP was performed by the ordering physician. The images demonstrate contrast opacifying the extrahepatic and to a lesser degree intrahepatic bilia ry system. Contrast is seen opacifying the cystic duct and gallbladder. No filling defects observed. A wire is seen traversing the common bile duct and terminating in the left hepatic ducts. CONCLUSION: ERCP as above. Frank Weaver Jr., MD on July 05, 2017 at 15:02 Board Certified Radiologist. This report was verified electronically.
[2017-07-05 16:08] LABS: INDIRECT BILIRUBIN 5.9 MG/DL (0.0-0.8); TOTAL BILIRUBIN ADULT 18.2 MG/DL (0.2-1.0)
--- NOTE | 2017-07-05 19:35 | MB ---
cc: MD CLIFF,ELISEO DATE OF CONSULTATION 07/05/17 REASON FOR CONSULTATION Acute hepatic failure, jaundice, abdominal pain, hepatitis. HISTORY OF PRESENT DISEASE This 32-year-old female presented to the emergency room after she noticed that her eyes turned yellow. She also had right upper quadrant pain, nausea and vomiting. The patient has fairly an unremarkable medical history. Denies having new sex partners, unsterile needles, shooting drugs or anything like that. No other issues. No blood in stool or hematemesis. The patient has allergy to Tylenol and hydrocodone so she is not taking that. PAST SURGICAL HISTORY Surgical history for tonsillectomy and several foot surgeries. PAST MEDICAL HISTORY Medical history of hypothyroidism. FAMILY HISTORY Unremarkable. SOCIAL HISTORY The patient is a very light smoker. Does not drink. Does not use drugs. PHYSICAL EXAMINATION GENERAL: Reveals a pleasant 32-year-old female. She is just status post ERCP, still a little drowsy. HEENT: Normocephalic. No trauma to the head. Pupils equally reactive. Extraocular muscles intact. Sclerae are heavily anicteric and skin is almost orange to the point of severe icterus, so are the mucous membranes. NECK: Bilateral carotid pulses. No bruits. CHEST: Bilateral breath sounds. HEART: Regular rhythm. ABDOMEN: Soft. No rebound or guarding. No masses. Slightly tender right upper quadrant and actually liver is not enlarged. PELVIS: Pelvis is stable. EXTREMITIES: Extremities are grossly within normal limits. Scars from previous surgery on the foot. BACK: Normal. IMPRESSION/RECOMMENDATIONS I reviewed laboratory, diagnostic procedures. This lady has indeed severe jaundice and also very significant elevation of liver function tests including AST, SGOT, SGPT and alkaline phosphatase. As far as bilirubin breakdown is concerned, this is mainly direct hyperbilirubinemia. Based on the above findings and MRCP results this patient does not have biliary obstruction caused by mechanical cause and based on her entire picture this lady has acute hepatitis cause of which at this point is being sought after. It is probably not related to Tylenol use or anything like that because she does not take it but clearly usual pathogens should be looked at. At this point there is nothing surgical to be done here. I thank you much for referral. Eliseo Mccoy SJ/EO /5:24 PM /7:22 PM
[2017-07-06] VITALS (7 sets, daily range): BP systolic 95–109; BP diastolic 57–67; PULSE 54–84; RESP 16–20; TEMP 97.8–99.1; O2SAT 95–98
[2017-07-06] MEDS: ONDANSETRON HCL 4 MG/2 ML VIAL IV PUSH PRN ×3 (01:10→17:49)
[2017-07-06 01:13] LABS: EBV VCA IgM Negative (Negative)
[2017-07-06] MEDS: MORPHINE SULFATE 2 MG/ML INJ IM PRN ×4 (04:34→21:29)
[2017-07-06] MEDS: D5-1/2 NS + KCL 10 MEQ INJ 1,000 ML IV SCH ×2 (07:53→17:52)
--- NOTE | 2017-07-06 08:00 | HHI.GIFU ---
Subjective Remarks Resting in bed. States she continues to have ruq pain and would like her gallbladder removed during this hospitalization. Nausea, no vomiting- states she will not eat the clear liquid diet because she does not like jello and broth. No fever. States that she has tested positive for HSV before because her mother had it, but has never had an active infection. (Marine Chan) Objective Vitals I&O Vital Signs Date Time Temp Pulse Resp B/P (MAP) Pulse Ox O2 Delivery O2 Flow Rate FiO2 07/06/17 04:33 98.0 69 16 106/61 (76) 98 07/06/17 04:00 Room Air 07/06/17 00:00 Room Air 07/05/17 23:25 98.9 64 16 99/63 (75) 98 07/05/17 20:00 98.7 61 16 110/64 (79) 97 07/05/17 20:00 Room Air 07/05/17 20:00 70 07/05/17 16:00 98.5 91 18 118/61 (80) 95 07/05/17 13:40 97.4 85 20 108/69 (82) 95 07/05/17 13:15 76 14 106/57 (73) 100 Room Air 07/05/17 13:00 89 14 97/55 (69) 99 Room Air 07/05/17 12:44 98.8 93 14 111/64 (80) 99 Nasal Cannula 2 07/05/17 11:10 98.6 81 16 108/74 (85) 98 07/05/17 08:00 98.4 70 20 107/67 (80) 100 07/05/17 08:00 Room Air I/O 07/05/17 07/05/17 07/05/17 07/06/17 07/06/17 07/06/17 07:00 15:00 23:00 07:00 15:00 23:00 Intake Total 1345 ml 600 ml 0 ml 240 ml Balance 1345 ml 600 ml 0 ml 240 ml Intake Oral 360 ml 0 ml 240 ml IV Total 985 ml Other 600 ml # Voids 4 5 # Bowel Movements 0 0 Laboratory Laboratory Tests Test 07/05/17 13:37 Prothrombin Time 13.6 Prothromb Time International Ratio 1.2 Jessica-Ragland Virus Capsid Ag IgG Ab Positive Jessica-Ragland Virus Capsid Ag IgM Ab Negative Jessica-Ragland Nuclear Antigen Positive Jessica-Ragland Virus Interpretation . Herpes Simplex Virus I IgG Ab Index Negative Herpes Simplex Virus II IgG Index Positive Date/Time Source Procedure Growth Status 07/03/17 21:20 Urine Random Urine Urine Culture - Final 10-50,000 CFU/ML MIXED NKECHI... Complete Imaging Last Impressions GI Procedure 07/05/17 0000 Signed Impressions: Service Date/Time: Wednesday, July 05, 2017 12:26 - CONCLUSION: ERCP as above. Frank Weaver Jr., MD Cholangiopancreatography MRI 07/04/17 0700 Signed Impressions: Service Date/Time: Tuesday, July 04, 2017 10:09 - CONCLUSION: Unremarkable MRCP. Jarad Beltran MD Gall Bladder Ultrasound 07/03/17 0000 Signed Impressions: Service Date/Time: Monday, July 03, 2017 20:44 - CONCLUSION: 4 mm borderline thickening of the wall the gallbladder with no evidence of stones or pericholecystic fluid and the bile ducts are normal. Ruben Carreon MD Physical Exam HEENT: Normocephalic; atraumatic; jaundice. CHEST: CTA CARDIAC: RRR. ABDOMEN: Soft, nondistended, RUQ tenderness; no hepatosplenomegaly; bowel sounds are present in all four quadrants. EXTREMITIES: No clubbing, cyanosis, or edema. SKIN: Normal; no rash; + jaundice. DYEING MACHINE TENDER: No focal deficits; alert and oriented times three. (Marine Chan [facility]) Assessment and Plan Plan ASSESSMENT: - Acute hepatitis, unclear etiology. Pt c/o RUQ pain and n/v. Denies any new medications, etoh use, herbal supplements, Tylenol use. States the only med she takes is control and that she has been on this since age 12. She does report that she was being seen as an outpatient for thyroid nodules and reports that there was some concern that they could be malignant. She reports that she has lost 150 pounds since September by cutting out junk food and soda. She denies any sick contacts, recent travel. [place] (07/03/17)---> 4 mm borderline thickening of the wall of the gallbladder with no evidence of stones or pericholecystic fluid in the bile ducts are normal. MRCP without contrast (07/04/17)---> Unremarkable MRCP. Patient with worsening LFTs today. Hepatitis profile negative. AFP 21.1, iron saturation 90.0, ferritin 3865, alpha 1 antitrypsin pending, ceruloplasmin pending, BRITTANY neg, AMA pending, ASMA pending. CMV pending, EBV ag IgG (+), EBV IgM negative, indicating past infection. HSV I IgG negative, IgM/titer pending. HSV II IgG positive, IgM/titer/ab pending. S/P ERCP with stone extraction for choledocholithiasis. LFTs remain elevated- T. Bili 18.2, Direct 12.3, Indirect 5.9, AST 1218, ALT 1487, Alk Phosph 175. - Choledocholithiasis. S/P ERCP with sphincterotomy and balloon extraction ()----> choledocholithiasis, acute hepatitis. LFTs remain elevated. Suspect that she likely has two issues going on- choledocholithiasis and acute hepatitis. GS following, no plans for surgery at this time. Consider cholecystectomy after acute hepatitis resolves. - Elevated AFP, undetermined significance. AFP 21.1. - Elevated ferritin, iron saturation. iron saturation 90.0, ferritin 3865. Hfe gene pending. - RUQ pain. Some wall thickening on US with no pericholecystic fluid. Unclear if this is related to hepatitis or there is gb path going on as well. GS following. - Coagulopathy. Trending up. Will need to follow. Yesterday 13.6, 1.2 - Elevated lipase, improved. Now normalized. - Abn. Wt. Loss. States she lost 150 lbs (320--->170 lb) since September from cutting out junk food and soda. - Hypothyroidism. States she was found to have thyroid nodules and told that they could be malignant as outpatient, but has not been able to get in for biopsy/further workup. PLAN: - Full liquids - IVF - Zofran prn - Await Hfe Gene - Await HSV IgM/Titer, HSV IgM/titer/ab, CMV dna - Await ASMA, AMA, Ceruloplasmin, Alpha 1 Antitrypsin - Monitor CBC, CMP, PT/INR - GS following - ? May need liver biopsy if no improvement - Further recommendations to follow based on results of above - Pt seen and examined by Dr. Ragsdale and myself and this note is written on his behalf (Marine Chan) Physician Comments Patient seen and examined Agree with above Continue with current supportive care Monitor labs LFTs seem to be decreasing finally But I think at this point we will pursue a liver biopsy this was discussed in detail with the patient and she is agreeable (Jay Ragsdale MD) Marine Chan Jul 06, 2017 08:00 Jay Ragsdale MD Jul 06, 2017 20:40
[2017-07-06] MEDS: SODIUM CHLORIDE 0.9% FLUSH 10 ML FLUSH IV FLUSH SCH ×2 (09:00→20:45)
[2017-07-06 09:40] LABS: AUTOMATED NEUTROPHIL # 6.6 TH/MM3 (1.8-7.7); BASOPHIL % 0.2 % (0.0-2.0); HEMATOCRIT 41.7 % (35.0-46.0); HEMO FLAGS DIFF FINAL; LYMPH % 17.7 % (9.0-44.0); LYMPHOCYTE # 1.5 TH/MM3 (1.0-4.8); MEAN CELL VOLUME 89.8 FL (80.0-100.0); MEAN CORPUSCULAR HEMOGLOBIN 30.8 PG (27.0-34.0); MEAN CORPUSCULAR HGB CONC 34.3 % (32.0-36.0); MONO % 5.5 % (0.0-8.0); NEUT % 76.6 % (16.0-70.0); PLATELET COUNT 173 TH/MM3 (150-450); RED BLOOD COUNT 4.64 MIL/MM3 (4.00-5.30); RED CELL DISTRIBUTION WIDTH 15.5 % (11.6-17.2); WHITE BLOOD COUNT 8.6 TH/MM3 (4.0-11.0)
[2017-07-06 09:49] LABS: INTERNATIONAL NORMALIZED RATIO 1.2 RATIO; PROTHROMBIN TIME - PATIENT 13.2 SEC (9.8-11.6)
[2017-07-06 10:14] LABS: BICARBONATE 22.3 MEQ/L (21.0-32.0); POTASSIUM 4.4 MEQ/L (3.5-5.1)
[2017-07-06 10:30] LABS: INDIRECT BILIRUBIN 5.4 MG/DL (0.0-0.8); TOTAL BILIRUBIN ADULT 18.7 MG/DL (0.2-1.0)
--- NOTE | 2017-07-06 15:07 | HHI.PR ---
Subjective Remarks Patient states she still having right upper quadrant abdominal pain. She believes her gallbladder needs to be removed. She states she does not like the superior or any of the other items on the liquid diet. She wants to try other foods. AST and ALTs improving but bilirubin is still high. Objective Vitals Vital Signs Date Time Temp Pulse Resp B/P (MAP) Pulse Ox O2 Delivery O2 Flow Rate FiO2 07/06/17 11:55 98.2 54 20 103/60 (74) 98 07/06/17 10:18 18 07/06/17 08:13 18 07/06/17 08:00 Room Air 07/06/17 08:00 98.3 79 20 109/63 (78) 96 07/06/17 04:33 98.0 69 16 106/61 (76) 98 07/06/17 04:00 Room Air 07/06/17 00:00 Room Air 07/05/17 23:25 98.9 64 16 99/63 (75) 98 07/05/17 20:00 98.7 61 16 110/64 (79) 97 07/05/17 20:00 Room Air 07/05/17 20:00 70 07/05/17 16:00 98.5 91 18 118/61 (80) 95 I/O 07/05/17 07/05/17 07/05/17 07/06/17 07/06/17 07/06/17 06:59 14:59 22:59 06:59 14:59 22:59 Intake Total 1345 ml 600 ml 0 ml 240 ml 1000 ml Balance 1345 ml 600 ml 0 ml 240 ml 1000 ml Intake Oral 360 ml 0 ml 240 ml IV Total 985 ml 1000 ml Other 600 ml # Voids 4 5 # Bowel Movements 0 0 Result Diagram: 07/06/17 0759 07/06/17 0759 Imaging Last Impressions GI Procedure 07/05/17 0000 Signed Impressions: Service Date/Time: Wednesday, July 05, 2017 12:26 - CONCLUSION: ERCP as above. Frank Weaver Jr., MD Cholangiopancreatography MRI 07/04/17 0700 Signed Impressions: Service Date/Time: Tuesday, July 04, 2017 10:09 - CONCLUSION: Unremarkable MRCP. Jarad Beltran MD Gall Bladder Ultrasound 07/03/17 0000 Signed Impressions: Service Date/Time: Monday, July 03, 2017 20:44 - CONCLUSION: 4 mm borderline thickening of the wall the gallbladder with no evidence of stones or pericholecystic fluid and the bile ducts are normal. Ruben Carreon MD Objective Remarks GENERAL: This is a well-nourished, well-developed patient, in no apparent distress. CARDIOVASCULAR: Normal rate and regular rhythm without murmurs, gallops, or rubs. RESPIRATORY: Good respiratory efforts. Breath sounds equal and clear to auscultation bilaterally. GASTROINTESTINAL: Abdomen soft, patient endorsed tenderness to palpation, mostly over the right side of the abdomen. No rebound tenderness. Normal and active bowel sounds. MUSCULOSKELETAL: Extremities without cyanosis, or edema. NEURO: Alert & Oriented x4 to person, place, time, situation. Moves all ext x4 PSYCH: Appropriate mood and affect. A/P Problem List: (1) Acute hepatitis ICD Code: B17.9 - Acute viral hepatitis, unspecified Status: Acute Assessment and Plan 32-year-old female patient with a known medical history of hypothyroidism and tobacco abuse who presented to the ED with complaints of abdominal pain with associated nausea and vomiting. Patient states that 3 days ago she noticed intermittent dizziness and yellowing of her sclera with the next day complaints of nausea and vomiting with abdominal pain all night long. Acute hepatitis: Etiology unclear. ? Choledocholithiasis,? Acute hepatitis - Gall bladder ultrasound reviewed showing 4 mm borderline thickening of the wall of the gallbladder with no evidence of stones or pericholecystic fluid and the bile ducts are normal. MRCP essentially unremarkable. ERCP done showing choledocholithiasis and acute hepatitis. -transaminase. Persisting but slightly improved, AST 627, ALT 1100 - Hepatitis profile negative. -Advance diet as tolerated. - GI following, appreciate input. General surgery evaluated the patient. No surgical intervention indicated at this point. - Patient reports continued abdominal pain. Will continue Oxycodone and add Morphine IV PRN for breakthrough pain. - Patient will try a diet. Will discuss with GI. Follow liver enzymes in AM, if continues to improve and no further workup indicated per GI, will consider DC to follow up outpatient with GI. DVT Prophylaxis: SCDs. Discharge Planning If liver enzymes continue to improve, patient tolerates a diet, and GI cleared for discharge to follow up outpatient, will consider discharging tomorrow. Mary Kate Jose MD Jul 06, 2017 15:07
[2017-07-07] VITALS (8 sets, daily range): BP systolic 90–114; BP diastolic 49–68; PULSE 50–92; RESP 16–20; TEMP 98.4–98.5; O2SAT 95–99
[2017-07-07] MEDS: D5-1/2 NS + KCL 10 MEQ INJ 1,000 ML IV SCH ×2 (04:19→14:00)
[2017-07-07] MEDS: MORPHINE SULFATE 2 MG/ML INJ IM PRN ×2 (06:27→14:21)
[2017-07-07] MEDS ORDERED: LIDOCAINE HCL 1% 20 ML VIAL ONE (07:46)
[2017-07-07] MEDS: SODIUM CHLORIDE 0.9% FLUSH 10 ML FLUSH IV FLUSH SCH (08:03)
[2017-07-07] MEDS ORDERED: MIDAZOLAM HCL 2 MG/2 ML VIAL ONE ×3 (08:28→09:04)
--- NOTE | 2017-07-07 09:22 | PD.RAD ---
Post CT Procedure Prog Note Pre Procedure Diagnosis: (1) Acute hepatitis Post Procedure Diagnosis: (1) Acute hepatitis Procedure Date: Jul 07, 2017 Supervising Radiologist: Lorne Watt Estimated blood loss: minimal Anesthesia: Conscious Sedation Plan of Activity Patient to Unit: ROPU Patient Condition: Good See PACS Report for procedural detail/treatment Biopsy Imaging Guidance: CT Side: Right Biopsy Procedure: Liver Specimen: Core Biopsy Findings: 2 18g cores obtained Plan to ROPU then return to floor. Lorne Watt MD Jul 07, 2017 09:22
--- NOTE | 2017-07-07 09:38 | RADRPT ---
EXAM DATE/TIME: 07/07/2017 08:39 [place] COMPARISON: MRCP W/O CONTRAST, July 04, 2017, 10:09. INDICATIONS : Liver biopsy for function. Acute hepatitis. SEDATION TIME: 30 minutes BIOPSY SITE: Right liver MEDICATION(S): 1.) 6 mg midazolam (Versed) IV 2.) 300 mcg fentanyl (Sublimaze) IV DEVICE(S): 1.) 18 gauge Temno core biopsy needle MEDICAL HISTORY : Gastroesophageal reflux disease. SURGICAL HISTORY : None. ENCOUNTER: Initial ACUITY: 1 day PAIN SCORE: 6/10 LOCATION: Right abdomen A total of two core specimen(s) were obtained and sent to the laboratory for pathologic evaluation. PROCEDURE: 1. CT guided liver biopsy. 2. Conscious sedation with continuous EKG and oximetry monitoring. 3. EKG and oximetry remained stable throughout the procedure. Prior to the procedure informed consent was obtained. Any appropriate prior imaging studies were rev iewed. Using automated exposure control and adjustment of the mA and/or kV according to patient size, radiat ion dose was kept as low as reasonably achievable to obtain optimal diagnostic quality images. DICOM format image data is available electronically for review and comparison. The site was prepped in a sterile fashion. Full sterile technique was used, including cap, mask, dayron rile gloves and gown and a large sterile sheet. Hand hygiene and 2% chlorhexidine and/or betadine/al cohol prep was utilized per protocol for cutaneous antisepsis. The skin and subcutaneous tissues wer e infiltrated with local anesthetic solution. With CT guidance the right lobe of the liver was localized. Biopsy was performed using the prescribed needle as above. Adequate hemostasis was obtained with compression at the puncture site. Follow-up CT scan reveals no hemorrhage or acute abnormality. The patient tolerated the procedure well and there were no complications. The patient was returned to the Radiology Outpatient Unit in stable condition. CONCLUSION: Uncomplicated CT guided biopsy of the liver. Lorne Watt MD on July 07, 2017 at 9:35 Board Certified Radiologist. This report was verified electronically.
[2017-07-07] MEDS: ONDANSETRON HCL 4 MG/2 ML VIAL IV PUSH PRN (11:48)
--- NOTE | 2017-07-07 12:36 | HHI.GIFU ---
Subjective Remarks Pt recently back from liver biopsy. Lab in to draw blood work. Pt states she knows what caused her hepatitis. States that it is her control pills Chateal Sp? and that she was taking her own control from home for the first few days she was here, until she sent them home. She is demanding a " stat POST TENSIONING IRONWORKER HELPER consult" so she can get a tubal ligation or IUD while she is here in the hospital. Instructed her that she cannot take any meds from home while she is hospitalized unless they have been approved and verified by the pharmacy and that she would need to stop her control and follow up with POST TENSIONING IRONWORKER HELPER as outpatient for other control options after her acute hepatitis resolves. She became angry and stated "Then I will never get better because I will not follow up as outpatient." She states she does not have a POST TENSIONING IRONWORKER HELPER and gets her control from [place]. (Marine Chan) Objective Vitals I&O Vital Signs Date Time Temp Pulse Resp B/P (MAP) Pulse Ox O2 Delivery O2 Flow Rate FiO2 07/07/17 10:45 66 18 90/58 (69) 97 07/07/17 10:21 Room Air 07/07/17 10:15 50 18 105/49 (67) 96 07/07/17 09:45 92 18 95 07/07/17 09:30 98.4 55 16 93/49 (64) 95 07/07/17 08:00 98.5 79 20 114/68 (83) 97 07/07/17 04:22 98.5 67 16 105/58 (74) 99 07/07/17 04:00 Room Air 07/07/17 00:00 Room Air 07/06/17 23:30 97.8 76 16 100/57 (71) 97 07/06/17 20:00 84 07/06/17 20:00 Room Air 07/06/17 19:55 99.1 75 16 109/67 (81) 98 07/06/17 15:49 99.0 65 20 95/62 (73) 95 07/06/17 15:24 18 07/06/17 12:17 18 I/O 07/06/17 07/06/17 07/06/17 07/07/17 07/07/17 07/07/17 07:00 15:00 23:00 07:00 15:00 23:00 Intake Total 240 ml 1000 ml 240 ml Balance 240 ml 1000 ml 240 ml Intake Oral 240 ml 240 ml IV Total 1000 ml # Voids 5 6 # Bowel Movements 0 0 Laboratory Date/Time Source Procedure Growth Status 07/03/17 21:20 Urine Random Urine Urine Culture - Final 10-50,000 CFU/ML MIXED NKECHI... Complete Imaging Last Impressions Liver Biopsy CT 07/06/17 0000 Signed Impressions: Service Date/Time: Friday, July 07, 2017 08:39 - CONCLUSION: Uncomplicated CT guided biopsy of the liver. Lorne Watt MD GI Procedure 07/05/17 0000 Signed Impressions: Service Date/Time: Wednesday, July 05, 2017 12:26 - CONCLUSION: ERCP as above. Frank Weaver Jr., MD Cholangiopancreatography MRI 07/04/17 0700 Signed Impressions: Service Date/Time: Tuesday, July 04, 2017 10:09 - CONCLUSION: Unremarkable MRCP. Jarad Beltran MD Gall Bladder Ultrasound 07/03/17 0000 Signed Impressions: Service Date/Time: Monday, July 03, 2017 20:44 - CONCLUSION: 4 mm borderline thickening of the wall the gallbladder with no evidence of stones or pericholecystic fluid and the bile ducts are normal. Ruben Carreon MD Physical Exam HEENT: Normocephalic; atraumatic; jaundice. CHEST: CTA CARDIAC: RRR. ABDOMEN: Soft, nondistended, RUQ tenderness; no hepatosplenomegaly; bowel sounds are present in all four quadrants. EXTREMITIES: No clubbing, cyanosis, or edema. SKIN: Normal; no rash; + jaundice. FORTUNE TELLER: No focal deficits; alert and oriented times three. (Marine Chan [facility]) Assessment and Plan Plan ASSESSMENT: - Acute hepatitis, unclear etiology. Pt c/o RUQ pain and n/v. Denies any new medications, etoh use, herbal supplements, Tylenol use. States the only med she takes is control and that she has been on this since age 12. She does report that she was being seen as an outpatient for thyroid nodules and reports that there was some concern that they could be malignant. She reports that she has lost 150 pounds since September by cutting out junk food and soda. She denies any sick contacts, recent travel. [place] (07/03/17)---> 4 mm borderline thickening of the wall of the gallbladder with no evidence of stones or pericholecystic fluid in the bile ducts are normal. MRCP without contrast (07/04/17)---> Unremarkable MRCP. Patient with worsening LFTs today. Hepatitis profile negative. AFP 21.1, iron saturation 90.0, ferritin 3865, alpha 1 antitrypsin 192, ceruloplasmin pending, BRITTANY neg, AMA pending, ASMA neg. CMV pending, EBV ag IgG (+), EBV IgM negative, indicating past infection. HSV I IgG negative, IgM/titer pending. HSV II IgG positive, IgM/titer/ab pending. S/P ERCP with stone extraction for choledocholithiasis. LFTs were starting to trend down yesterday. They are still pending today. S/P CT guided liver biopsy (07/07/17), pathology pending. Pt informed me that she was still taking her control from home for the first two days she was in the hospital, until she sent them home. She feels that her hepatitis may be related to her control and is requesting a "Stat POST TENSIONING IRONWORKER HELPER consult" for either a tubal ligation or IUD. Explained to patient that she cannot take her control until her hepatitis resolves and that she will need to fu with POST TENSIONING IRONWORKER HELPER after her hepatitis resolves, but she is stating that she will not follow up and she "will never get better then." - Choledocholithiasis. S/P ERCP with sphincterotomy and balloon extraction ()----> choledocholithiasis, acute hepatitis. LFTs remain elevated. Suspect that she likely has two issues going on- choledocholithiasis and acute hepatitis. GS following, no plans for surgery at this time. Consider cholecystectomy after acute hepatitis resolves. - Elevated AFP, undetermined significance. AFP 21.1. - Elevated ferritin, iron saturation. iron saturation 90.0, ferritin 3865. Hfe gene pending. - RUQ pain. Some wall thickening on US with no pericholecystic fluid. Unclear if this is related to hepatitis or there is gb path going on as well. GS following. - Coagulopathy. Yesterday 13.6, 1.2 - Elevated lipase, improved. Now normalized. - Abn. Wt. Loss. States she lost 150 lbs (320--->170 lb) since September from cutting out junk food and soda. - Hypothyroidism. States she was found to have thyroid nodules and told that they could be malignant as outpatient, but has not been able to get in for biopsy/further workup. PLAN: - YASMIN - Await liver biopsy results - Await Hfe Gene - Await HSV IgM/Titer, HSV IgM/titer/ab, CMV dna - Await AMA, Ceruloplasmin - S/P GS following - Recommend stopping control- D/W patient. Pt is demanding a POST TENSIONING IRONWORKER HELPER consult for tubal ligation/IUD prior to d/c if we want her to stop her control. D/W patient that we recommend stopping her control and then following up with POST TENSIONING IRONWORKER HELPER as outpatient for consideration of other control options once her acute hepatitis resolves. Will defer to attending. - Further recommendations to follow based on results of above - Pt seen and examined by Dr. Ragsdale and myself and this note is written on his behalf ADDENDUM 1531: LFTs from today much improved, T. Bili 15.8, AST 209, ALT 739, Alk Phosph 162. Plan is for her to go home today. Will need repeat LFTs next week and GI FU in 1-2 weeks. No medications (OTC or prescribed without clearance from GI). Recommend stopping control until seen at follow up visit. (Marine Chan) Physician Comments Patient seen and examined Agree with above Continue with current supportive care Monitor labs Follow-up with GI post discharge (Jay Ragsdale MD) Marine Chan Jul 07, 2017 12:36 Jay Ragsdale MD Jul 07, 2017 21:06
[2017-07-07 14:33] LABS: AUTOMATED NEUTROPHIL # 5.7 TH/MM3 (1.8-7.7); BASOPHIL % 0.4 % (0.0-2.0); EOSINOPHIL % 0.1 % (0.0-4.0); HEMATOCRIT 39.7 % (35.0-46.0); HEMO FLAGS DIFF FINAL; LYMPH % 26.5 % (9.0-44.0); LYMPHOCYTE # 2.3 TH/MM3 (1.0-4.8); MEAN CELL VOLUME 90.4 FL (80.0-100.0); MEAN CORPUSCULAR HEMOGLOBIN 31.3 PG (27.0-34.0); MEAN CORPUSCULAR HGB CONC 34.6 % (32.0-36.0); MONO % 7.8 % (0.0-8.0); NEUT % 65.2 % (16.0-70.0); PLATELET COUNT 158 TH/MM3 (150-450); RED BLOOD COUNT 4.39 MIL/MM3 (4.00-5.30); WHITE BLOOD COUNT 8.7 TH/MM3 (4.0-11.0)
[2017-07-07 14:48] LABS: INTERNATIONAL NORMALIZED RATIO 1.1 RATIO; PROTHROMBIN TIME - PATIENT 12.7 SEC (9.8-11.6)
[2017-07-07 14:56] LABS: ALKALINE PHOSPHATASE 162 U/L (45-117); ALT (GPT) 739 U/L (10-53); ANION GAP 10 MEQ/L (5-15); AST (GOT) 209 U/L (15-37); BICARBONATE 22.9 MEQ/L (21.0-32.0); BLOOD UREA NITROGEN 5 MG/DL (7-18); CHLORIDE 109 MEQ/L (98-107); GLOMERULAR FILTRATION RATE 70 ML/MIN (>89); POTASSIUM 3.4 MEQ/L (3.5-5.1); SODIUM (NA) 142 MEQ/L (136-145)
[2017-07-07 15:06] LABS: TOTAL BILIRUBIN ADULT 15.8 MG/DL (0.2-1.0)
[2017-07-07] MEDS ORDERED: OXYC-392 PO (15:51)
--- NOTE | 2017-07-07 15:55 | HHI.DCPOC ---
Discharge Care Plan Diagnosis: (1) Acute hepatitis (2) Hypothyroid Goals to Promote Your Health * To prevent worsening of your condition and complications * To maintain your health at the optimal level Directions to Meet Your Goals Take your medications as prescribed Follow your dietary instruction Follow activity as directed Keep your appointments as scheduled Take your immunizations and boosters as scheduled If your symptoms worsen call your PCP, if no PCP go to Urgent Care Center or Emergency Room Smoking is Dangerous to Your Health. Avoid second hand smoke Call the 24-hour hour crisis hotline for domestic abuse at Mary Kate Jose MD Jul 07, 2017 15:55
--- NOTE | 2017-07-07 16:16 | HHI.DS ---
Discharge Summary Admission Date Jul 03, 2017 at 22:47 Discharge Date: Jul 07, 2017 Admitting Diagnosis acute hepatitis (1) Acute hepatitis ICD Code: B17.9 - Acute viral hepatitis, unspecified Diagnosis: Principal Status: Acute Procedures ERCP Liver biopsy Brief History - From Admission 32-year-old female patient with a known medical history of hypothyroidism and tobacco abuse who presented to the ED with complaints of abdominal pain with associated nausea and vomiting. Patient states that 3 days ago she noticed intermittent dizziness and yellowing of her sclera with the next day complaints of nausea and vomiting with abdominal pain all night long. Denies any similar symptoms in the past. Denies eating anything unusual in her diet. Denies any recent consumption of seafood, states she is allergic. Denies any recent exposure to contaminated needles. Denies any new sexual partners, patient is . 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 Denies any exposure to hepatitis "if that is what you're asking". Denies any recent fever, chills, cough, shortness of breath, headache, diarrhea or hematochezia. CBC/BMP: 07/07/17 1400 07/07/17 1400 Significant Findings Laboratory Tests Test 07/05/17 06:55 07/05/17 13:37 07/06/17 07:59 07/07/17 14:00 Blood Urea Nitrogen 5 MG/DL (7-18) 5 MG/DL (7-18) 5 MG/DL (7-18) Creatinine 1.05 MG/DL (0.50-1.00) Total Protein 5.8 GM/DL (6.4-8.2) 5.5 GM/DL (6.4-8.2) 5.5 GM/DL (6.4-8.2) Albumin 3.0 GM/DL (3.4-5.0) 2.9 GM/DL (3.4-5.0) 2.9 GM/DL (3.4-5.0) Calcium Level 8.1 MG/DL (8.5-10.1) 8.3 MG/DL (8.5-10.1) Alkaline Phosphatase 180 U/L (45-117) 155 U/L (45-117) 162 U/L (45-117) Aspartate Amino Transf (AST/SGOT) 1204 U/L (15-37) 627 U/L (15-37) 209 U/L (15-37) Alanine Aminotransferase (ALT/SGPT) 1511 U/L (10-53) 1112 U/L (10-53) 739 U/L (10-53) Total Bilirubin 18.6 MG/DL (0.2-1.0) 18.7 MG/DL (0.2-1.0) 15.8 MG/DL (0.2-1.0) Chloride Level 109 MEQ/L (98-107) 109 MEQ/L (98-107) 109 MEQ/L (98-107) Estimat Glomerular Filtration Rate 60 ML/MIN (>89) 78 ML/MIN (>89) 70 ML/MIN (>89) Iron Level 310 MCG/DL (50-170) Percent Iron Saturation 90.0 % (20-50) Ferritin 3865 NG/ML (8-252) Direct Bilirubin 12.3 MG/DL (0.0-0.2) 13.3 MG/DL (0.0-0.2) Indirect Bilirubin 5.9 MG/DL (0.0-0.8) 5.4 MG/DL (0.0-0.8) Tdvwb-6-Tbhxlhfmcfl 192 mg/dL (100 - 190) Tumor Marker Alpha Fetoprotein 21.1 NG/ML (0.5-8.0) Prothrombin Time 13.6 SEC (9.8-11.6) 13.2 SEC (9.8-11.6) 12.7 SEC (9.8-11.6) Neutrophils (%) (Auto) 76.6 % (16.0-70.0) Random Glucose 110 MG/DL (74-106) 197 MG/DL (74-106) Potassium Level 3.4 MEQ/L (3.5-5.1) Imaging Last Impressions Liver Biopsy CT 07/06/17 0000 Signed Impressions: Service Date/Time: Friday, July 07, 2017 08:39 - CONCLUSION: Uncomplicated CT guided biopsy of the liver. Lorne Watt MD GI Procedure 07/05/17 0000 Signed Impressions: Service Date/Time: Wednesday, July 05, 2017 12:26 - CONCLUSION: ERCP as above. Frank Weaver Jr., MD Cholangiopancreatography MRI 07/04/17 0700 Signed Impressions: Service Date/Time: Tuesday, July 04, 2017 10:09 - CONCLUSION: Unremarkable MRCP. Jarad Beltran MD Gall Bladder Ultrasound 07/03/17 0000 Signed Impressions: Service Date/Time: Monday, July 03, 2017 20:44 - CONCLUSION: 4 mm borderline thickening of the wall the gallbladder with no evidence of stones or pericholecystic fluid and the bile ducts are normal. Ruben Carreon MD PE at Discharge GENERAL: This is a well-nourished, well-developed patient, in no apparent distress. CARDIOVASCULAR: Normal rate and regular rhythm without murmurs, gallops, or rubs. RESPIRATORY: Good respiratory efforts. Breath sounds equal and clear to auscultation bilaterally. GASTROINTESTINAL: Abdomen soft, patient endorsed tenderness to palpation, mostly over the right side of the abdomen. No rebound tenderness. Normal and active bowel sounds. MUSCULOSKELETAL: Extremities without cyanosis, or edema. NEURO: Alert & Oriented x4 to person, place, time, situation. Moves all ext x4 PSYCH: Appropriate mood and affect. Pt update on day of discharge Patient reports she is doing okay. She reports some discomfort at the site of the liver biopsy. She was able to tolerate food. No vomiting. She inquired about having a tubal ligation during her hospitalization. I advised the patient she needs to recover from acute hepatitis and this is an outpatient procedure. Discussed with the patient she needs to stop taking her control and use alternative methods such as condoms or abstinence. Hospital Course 32-year-old female patient with a known medical history of hypothyroidism and tobacco abuse who presented to the ED with complaints of abdominal pain with associated nausea and vomiting. Patient states that 3 days ago she noticed intermittent dizziness and yellowing of her sclera with the next day complaints of nausea and vomiting with abdominal pain all night long. The patient has had an extensive workup in the hospital including MRCP, ERCP, and a liver biopsy. GI has been following closely. It was later discovered the patient has been taking her estrogen control even during her hospital stay. Patient was advised to discontinue this medication. Her liver enzymes are trending down quickly. Extensive discussion with the patient to stop taking this control and use alternative methods such as condoms or abstinence. She is advised to follow-up outpatient with GI, she has multiple test pending and the pathology on the biopsy is also pending. Patient voiced understanding. Pt Condition on Discharge: Stable Discharge Disposition: Discharge Home Discharge Time: <= 30 minutes Discharge Instructions DIET: Follow Instructions for: As Tolerated, No Restrictions Activities you can perform: Regular-No Restrictions Follow up Referrals: Gastroenterology - 1 Week with Jay Ragsdale MD PCP Follow-up - 1 Week New Medications: Oxycodone (Oxycodone) 5 Mg Tab 5 MG PO Q4H PRN for PAIN GREATER THAN 5, #10 TAB Continued Medications: Levothyroxine (Synthroid) 200 Mcg Tab 250 MCG PO DAILY for Thyroid, #30 TAB 0 Refills Discontinued Medications: [ control] () Mary Kate Jose MD Jul 07, 2017 16:16
[2017-07-08 14:28] LABS: HSV IGM 1 TITER ND TITER; HSV IGM II TITER ND TITER
[2017-07-08 23:52] LABS: HSV2 IGM IFA NEGATIVE
[2017-07-12 03:49] LABS: MITOCHONDRIAL ABS 68.2 U (<=20.0)
[2017-07-12 09:49] LABS: HEREDITARY HEMOCHROM SPECIMEN WB Whole Blood
== END 2017-07-07 17:27 | disposition home or self-care (01) | DRG 442 ==
LOC: NEPD 17:13 → NEDA 22:47 → N04B 07-04 00:03
PROVIDERS: ADMIT Internal Medicine; ATTEND Internal Medicine
PROC: 0F798ZZ Dilation of Common Bile Duct, Via Natural or Artificial Opening Endoscopic (ICD-10-PCS; principal; 2017-07-05 11:45)
PROC: 0FB13ZX Excision of Right Lobe Liver, Percutaneous Approach, Diagnostic (ICD-10-PCS; 2017-07-07)
DX: B17.9 Acute viral hepatitis, unspecified (principal); D68.9 Coagulation defect, unspecified; K80.50 Calculus of bile duct without cholangitis or cholecystitis without obstruction; E04.2 Nontoxic multinodular goiter; E03.9 Hypothyroidism, unspecified; F17.210 Nicotine dependence, cigarettes, uncomplicated; F41.9 Anxiety disorder, unspecified; Z88.6 Allergy status to analgesic agent
CPT/HCPCS: 47000; 74181; 74330; 76377; 76705; 77012; 80048; 80053; 80074; 80076; 80307; 81001; 81256; 82103; 82105; 82390; 82728; 82948; 83520; 83540; 83550; 83690; 84703; 85025; 85610; 85730; 86038; 86255; 86664; 86665; 86695; 86696; 87086; 87497; 88307; 88313; 88341; 96361; 96374; 96375; 96376; C1769; J0330; J1100; J1610; J2250; J2270; J2405; J2550; J3010; J3480; J7030; J7120; J8501; Q9967

== ENCOUNTER 2017-07-12 21:26 | Emergency (ER) | payer MEDICAID ==
[~2017-07-12] VITALS: Ht 160 cm; Wt 68.0 kg
[~2017-07-12 21:26] MED LIST: LEVO.2 PO; OXYC-392 PO
[2017-07-12 21:30] VITALS: BP 122/79; PULSE 96; RESP 18; TEMP 99.2; O2SAT 100
[2017-07-12] MEDS ORDERED: SODIUM CHLOR 0.9% 1000 ML INJ 1,000 ML IV SCH (21:41)
[2017-07-12] MEDS ORDERED: ONDANSETRON HCL 4 MG/2 ML VIAL IVP ONE (21:45)
[2017-07-12] MEDS ORDERED: MORPHINE SULFATE 4 MG/ML INJ IV PUSH ONE (21:45)
[2017-07-12] MEDS ORDERED: SODIUM CHLORIDE 0.9% FLUSH 10 ML FLUSH IV FLUSH PRN (21:45)
--- NOTE | 2017-07-12 21:57 | PD ---
HPI Chief Complaint: Abdominal Pain Time Seen by Provider: 21:36 Travel History International Travel<30 days: No Contact w/Intl Traveler<30days: No Traveled to known affect area: No History of Present Illness HPI Patient comes back to the emergency department complaining of right upper quadrant pain and jaundice. Patient's pain ongoing intermittently throughout the day and got worse around 5:30 that she describes as sharp stabbing in nature and radiates to her back into her right shoulder. Patient states she noticed her eye starting to yellow around noon today and progressively has got worsen and jaundice noted to her skin. Patient states that previously her skin turned back to normal color and eyes were white. Patient had a liver biopsy done on Monday but has not followed up with GI. Patient states she is waiting for a phone call from them. Patient denies anything making this better or worse. Denies any chest pain, shortness of breath, fevers, nausea and vomiting , loss change in bowel or bladder. PFSH Past Medical History Cancer: No Cardiovascular Problems: No Diminished Hearing: No GERD: Yes Genitourinary: No Immune Disorder: No Musculoskeletal: No Psychiatric: No Respiratory: No Migraines: Yes Thyroid Disease: Yes (HYPOTHYRODISM) ?: Not LMP: 06/21/17 Dilation and Curettage (D&C): Yes Past Surgical History Tonsillectomy: Yes Other Surgery: Yes (five on right foot) Social History Alcohol Use: Yes (socially) Tobacco Use: Yes ("QUITING") Substance Use: No Allergies-Medications (Allergen,Severity, Reaction): Coded Allergies: acetaminophen (Verified Allergy, Severe, Itching, 07/12/17) hydrocodone (Verified Allergy, Severe, Itching, 07/12/17) latex (Verified Allergy, Severe, 07/12/17) Uncoded Allergies: cillins (Allergy, Severe, Anaphylaxis, 07/03/17) Reported Meds & Prescriptions Reported Meds & Active Scripts Active Oxycodone (Oxycodone HCl) 5 Mg Cap 5 Mg PO Q8H PRN Reported Synthroid (Levothyroxine Sodium) 200 Mcg Tab 250 Mcg PO DAILY Review of Systems Except as stated in HPI: all other systems reviewed are Neg Physical Exam Narrative GENERAL: Well-developed, well nourished, in no acute distress, and non-ill appearing. SKIN: Focused skin assessment warm and dry. Jaundiced. HEAD: Atraumatic. Normocephalic. EYES: Pupils equal and round. EOMI.Scleral icterus. No injection or drainage. ENT: No nasal bleeding or discharge. Mucous membranes pink and moist. NECK: Trachea midline. Supple. No nuclear rigidity. CARDIOVASCULAR: Regular rate and rhythm. No murmur appreciated. RESPIRATORY: No accessory muscle use. No respiratory distress. Clear to auscultation. Breath sounds equal bilaterally. GASTROINTESTINAL: Abdomen soft, nondistended, and no guarding. Hepatic and splenic margins not palpable. Normal bowel sounds 4. No pulsatile mass. Patient reports tenderness to palpation right upper quadrant. MUSCULOSKELETAL: No obvious deformities. No clubbing. No cyanosis. No edema. Full range of motion. NEUROLOGICAL: Awake and alert. No obvious cranial nerve deficits. Motor grossly within normal limits. Normal speech. PSYCHIATRIC: Appropriate mood and affect; insight and judgment normal. Data Data Last Documented VS Vital Signs Date Time Temp Pulse Resp B/P (MAP) Pulse Ox O2 Delivery O2 Flow Rate FiO2 07/13/17 02:27 07/13/17 02:22 79 18 99 Room Air 07/12/17 21:30 99.2 Orders Orders Complete Blood Count With Diff (07/12/17 21:41) Comprehensive Metabolic Panel (07/12/17 21:41) Lipase (07/12/17 21:41) Prothrombin Time / Inr (Pt) (07/12/17 21:41) Act Partial Throm Time (Ptt) (07/12/17 21:41) Iv Access Insert/Monitor (07/12/17 21:41) Ecg Monitoring (07/12/17 21:41) Oximetry (07/12/17 21:41) Morphine Inj (Morphine Inj) (07/12/17 21:45) Ondansetron Inj (Zofran Inj) (07/12/17 21:45) Sodium Chlor 0.9% 1000 Ml Inj (Ns 1000 M (07/12/17 21:41) Sodium Chloride 0.9% Flush (Ns Flush) (07/12/17 21:45) Us Abdomen Gallbladder (07/12/17 ) Ed Discharge Order (07/13/17 01:43) Labs Laboratory Tests Test 07/12/17 21:45 White Blood Count 10.0 TH/MM3 Red Blood Count 4.50 MIL/MM3 Hemoglobin 13.9 GM/DL Hematocrit 39.8 % Mean Corpuscular Volume 88.4 FL Mean Corpuscular Hemoglobin 30.8 PG Mean Corpuscular Hemoglobin Concent 34.9 % Red Cell Distribution Width 16.5 % Platelet Count 232 TH/MM3 Mean Platelet Volume 10.1 FL Neutrophils (%) (Auto) 49.0 % Lymphocytes (%) (Auto) 37.8 % Monocytes (%) (Auto) 8.1 % Eosinophils (%) (Auto) 4.3 % Basophils (%) (Auto) 0.8 % Neutrophils # (Auto) 4.9 TH/MM3 Lymphocytes # (Auto) 3.8 TH/MM3 Monocytes # (Auto) 0.8 TH/MM3 Eosinophils # (Auto) 0.4 TH/MM3 Basophils # (Auto) 0.1 TH/MM3 CBC Comment DIFF FINAL Differential Comment Prothrombin Time 10.8 SEC Prothromb Time International Ratio 1.0 RATIO Activated Partial Thromboplast Time 24.5 SEC Blood Urea Nitrogen 7 MG/DL Creatinine 0.80 MG/DL Random Glucose 110 MG/DL Total Protein 6.2 GM/DL Albumin 3.0 GM/DL Calcium Level 8.6 MG/DL Alkaline Phosphatase 187 U/L Aspartate Amino Transf (AST/SGOT) 347 U/L Alanine Aminotransferase (ALT/SGPT) 523 U/L Total Bilirubin 14.6 MG/DL Sodium Level 138 MEQ/L Potassium Level 4.0 MEQ/L Chloride Level 106 MEQ/L Carbon Dioxide Level 24.7 MEQ/L Anion Gap 7 MEQ/L Estimat Glomerular Filtration Rate 82 ML/MIN Lipase 399 U/L [facility] Medical Decision Making Medical Screen Exam Complete: Yes Emergency Medical Condition: Yes Differential Diagnosis Jaundice, hepatitis, electrolyte abnormality, cholecystitis, pancreatitis, other Narrative Course Patient was seen and examined. Initial laboratory and radiological studies were ordered. Patient was signed out to Dr. Pabon at the end of my shift. Please see her documentation for final diagnosis and disposition. Scripts Oxycodone (Oxycodone) 5 Mg Cap 5 MG PO Q8H Y for PAIN, #6 CAP 0 Refills Prov: Xavier Pabon MD 07/13/17 Luis Martinez Jul 12, 2017 21:57
[2017-07-12 22:21] LABS: AUTOMATED NEUTROPHIL # 4.9 TH/MM3 (1.8-7.7); BASOPHIL # 0.1 TH/MM3 (0-0.2); BASOPHIL % 0.8 % (0.0-2.0); EOSINOPHIL # 0.4 TH/MM3 (0-0.4); EOSINOPHIL % 4.3 % (0.0-4.0); HEMATOCRIT 39.8 % (35.0-46.0); HEMOGLOBIN 13.9 GM/DL (11.6-15.3); LYMPH % 37.8 % (9.0-44.0); LYMPHOCYTE # 3.8 TH/MM3 (1.0-4.8); MEAN CELL VOLUME 88.4 FL (80.0-100.0); MEAN CORPUSCULAR HEMOGLOBIN 30.8 PG (27.0-34.0); MEAN CORPUSCULAR HGB CONC 34.9 % (32.0-36.0); MEAN PLATELET VOLUME 10.1 FL (7.0-11.0); MONO % 8.1 % (0.0-8.0); MONOCYTE # 0.8 TH/MM3 (0-0.9); PLATELET COUNT 232 TH/MM3 (150-450); RED CELL DISTRIBUTION WIDTH 16.5 % (11.6-17.2)
[2017-07-12 22:36] LABS: PROTHROMBIN TIME - PATIENT 10.8 SEC (9.8-11.6)
[2017-07-12 22:44] LABS: ALT (GPT) 523 U/L (10-53)
[2017-07-12 22:47] LABS: ALKALINE PHOSPHATASE 187 U/L (45-117); TOTAL BILIRUBIN ADULT 14.6 MG/DL (0.2-1.0); TOTAL PROTEIN 6.2 GM/DL (6.4-8.2)
--- NOTE | 2017-07-12 22:52 | RADRPT ---
EXAM DATE/TIME: 07/12/2017 22:15 [place] COMPARISON: No previous studies available for comparison. INDICATIONS : Right upper quadrant pain. MEDICAL HISTORY : Right upper quadrant pain. Jaundice. SURGICAL HISTORY : Liver biopsy. ENCOUNTER: Subsequent ACUITY: 2 weeks PAIN SCORE: 5/10 LOCATION: Right upper quadrant MEASUREMENTS: LIVER: 14.3 cm length COMMON DUCT: 4 mm RIGHT KIDNEY: 10.4 x 5.6 x 6.2 cm FINDINGS: LIVER: Normal echotexture without focal lesion or ductal dilatation. COMMON DUCT: No intraluminal mass or stone visualized. GALLBLADDER: Contracted PANCREAS: Limited visualization RIGHT KIDNEY: No evidence of hydronephrosis, stone, or mass. CONCLUSION: Contracted gallbladder. Lorne Reed MD on July 12, 2017 at 22:50 Board Certified Radiologist. This report was verified electronically.
[2017-07-12 22:53] LABS: AST (GOT) 347 U/L (15-37); BICARBONATE 24.7 MEQ/L (21.0-32.0); CALCIUM 8.6 MG/DL (8.5-10.1); CHLORIDE 106 MEQ/L (98-107); GLOMERULAR FILTRATION RATE 82 ML/MIN (>89); GLUCOSE,RANDOM 110 MG/DL (74-106); LIPASE 399 U/L (73-393); SODIUM (NA) 138 MEQ/L (136-145)
[2017-07-12 22:54] LABS: BLOOD UREA NITROGEN 7 MG/DL (7-18)
--- NOTE | 2017-07-13 01:49 | PD ---
Physical Exam Date Seen by Provider: Jul 13, 2017 Time Seen by Provider: 01:44 Narrative 32-year-old female came to the emergency room with history of epigastric and right upper quadrant pain that started last night. Patient says that she was admitted in the hospital for almost a week about 2 weeks ago with the same initial complain. They found her to be severely jaundiced. Patient had ERCP, MRCP and liver biopsy done. When she was discharged was asked to follow up with the GI specialist. Patient says that she called the office on Monday and was told by the payroll secretary at the office that an appointment cannot be scheduled to all the test results of back which included liver biopsy. Patient says her pain started to come back and she was worried and hence came back to the emergency room. Patient was seen by my PA and I was supervising him. He signed over the case to me once he finished his shift. Patient had blood test done and ultrasound. The blood test is suggestive of hyperbilirubinemia and elevated LFTs. However when compared to her last test results these test seemed to be slightly improving. Ultrasound was negative. Patient's vital signs are stable. She was given pain medication and currently she is pain controlled. I discussed the case with Dr. Zapata and as per him if I think patient is stable to go home then he wants us to call the GI office in the morning and asked them to schedule an appointment for the patient on Monday and let them know that he wanted this appointment. This message has been given to the patient's nurse who will have to pass it onto the morning person. I am comfortable discharging the patient home at this point. The fact that the liver biopsy is not back limits any diagnosis at this point and hence further management. Given the fact that LFTs are little better than before and the ERCP and MRCP did not show any obstruction there is very little to do at this point. I will explain this to the patient. Data Data Last Documented VS Orders Orders Complete Blood Count With Diff (07/12/17 21:41) Comprehensive Metabolic Panel (07/12/17 21:41) Lipase (07/12/17 21:41) Prothrombin Time / Inr (Pt) (07/12/17 21:41) Act Partial Throm Time (Ptt) (07/12/17 21:41) Iv Access Insert/Monitor (07/12/17 21:41) Ecg Monitoring (07/12/17 21:41) Oximetry (07/12/17 21:41) Morphine Inj (Morphine Inj) (07/12/17 21:45) Ondansetron Inj (Zofran Inj) (07/12/17 21:45) Sodium Chlor 0.9% 1000 Ml Inj (Ns 1000 M (07/12/17 21:41) Sodium Chloride 0.9% Flush (Ns Flush) (07/12/17 21:45) Us Abdomen Gallbladder (07/12/17 ) Ed Discharge Order (07/13/17 01:43) Labs Laboratory Tests Test 07/12/17 21:45 White Blood Count 10.0 TH/MM3 Red Blood Count 4.50 MIL/MM3 Hemoglobin 13.9 GM/DL Hematocrit 39.8 % Mean Corpuscular Volume 88.4 FL Mean Corpuscular Hemoglobin 30.8 PG Mean Corpuscular Hemoglobin Concent 34.9 % Red Cell Distribution Width 16.5 % Platelet Count 232 TH/MM3 Mean Platelet Volume 10.1 FL Neutrophils (%) (Auto) 49.0 % Lymphocytes (%) (Auto) 37.8 % Monocytes (%) (Auto) 8.1 % Eosinophils (%) (Auto) 4.3 % Basophils (%) (Auto) 0.8 % Neutrophils # (Auto) 4.9 TH/MM3 Lymphocytes # (Auto) 3.8 TH/MM3 Monocytes # (Auto) 0.8 TH/MM3 Eosinophils # (Auto) 0.4 TH/MM3 Basophils # (Auto) 0.1 TH/MM3 CBC Comment DIFF FINAL Differential Comment Prothrombin Time 10.8 SEC Prothromb Time International Ratio 1.0 RATIO Activated Partial Thromboplast Time 24.5 SEC Blood Urea Nitrogen 7 MG/DL Creatinine 0.80 MG/DL Random Glucose 110 MG/DL Total Protein 6.2 GM/DL Albumin 3.0 GM/DL Calcium Level 8.6 MG/DL Alkaline Phosphatase 187 U/L Aspartate Amino Transf (AST/SGOT) 347 U/L Alanine Aminotransferase (ALT/SGPT) 523 U/L Total Bilirubin 14.6 MG/DL Sodium Level 138 MEQ/L Potassium Level 4.0 MEQ/L Chloride Level 106 MEQ/L Carbon Dioxide Level 24.7 MEQ/L Anion Gap 7 MEQ/L Estimat Glomerular Filtration Rate 82 ML/MIN Lipase 399 U/L MDM Supervised Visit with [facility]ANT[facility]: Yes Diagnosis Primary Impression: Hyperbilirubinemia Additional Impressions: Elevated LFTs Hepatitis Referrals: Geovanny Anglin MD 1 week Additional Instruction: Please return to the ER the condition worsens or any other new concerns. Otherwise review will have an appointment with the GI specialist on Monday. They will call you and that she know at what time. Do not eat any fried or greasy food. Do not take any medication that has Tylenol product. Do not take control pills. Med/Other Pt SpecificInfo: Prescription(s) given, No Change to Meds Scripts Oxycodone (Oxycodone) 5 Mg Cap 5 MG PO Q8H Y for PAIN, #6 CAP 0 Refills Prov: Xavier Pabon MD 07/13/17 Disposition: 01 DISCHARGE HOME Condition: Stable Xavier Pabon MD Jul 13, 2017 01:49
[2017-07-13] MEDS ORDERED: OXYC1CAP PO (01:55)
[2017-07-13 02:22] VITALS: BP 114/64; PULSE 79; RESP 18; O2SAT 99
== END 2017-07-13 02:28 | disposition home or self-care (01) ==
LOC: NEPE 21:26
DX: E80.6 Other disorders of bilirubin metabolism (principal); R79.89 Other specified abnormal findings of blood chemistry; K75.9 Inflammatory liver disease, unspecified; K21.9 Gastro-esophageal reflux disease without esophagitis; E03.9 Hypothyroidism, unspecified
CPT/HCPCS: 76705; 80053; 83690; 85025; 85610; 85730; 96361; 96374; 96375; 99284; J2270; J2405; J7030